=== PATIENT | female | born 1960 | race Caucasian/White ===

== ENCOUNTER → 2017-05-19 10:18 | Outpatient (CLI) | payer OTHER, SELFPAY ==
[2017-05-19 12:27] LABS: Anion Gap 9 (5-15); BUN 13 mg/dL (7-18); BUN/Creat Ratio 14.1 RATIO (10-20); Chloride 100 mmol/L (98-107); Creatinine, Serum 0.92 mg/dL (0.55-1.02); EST Glomerular Filtration Rate 67 mL/min (>60); Est Glom Filt Rate - Afr Amer 81 mL/min (>60); Glucose 91 mg/dL (70-110); Potassium 3.5 mmol/L (3.5-5.1); Sodium Level 140 mmol/L (136-145)
== END ==
PROVIDERS: Family Provider Family Medicine; PCP Family Medicine; Visit Provider Family Medicine
DX: I10 Essential (primary) hypertension (principal)
CPT/HCPCS: 36415; 80048

== ENCOUNTER → 2017-11-03 14:15 | Outpatient (CLI) | payer OTHER, SELFPAY ==
[2017-11-03 15:49] LABS: Anion Gap 7 (5-15); BUN 11 mg/dL (7-18); BUN/Creat Ratio 11.1 RATIO (10-20); Calcium,Total 9.2 mg/dL (8.5-10.1); Chloride 101 mmol/L (98-107); Creatinine, Serum 0.99 mg/dL (0.55-1.02); EST Glomerular Filtration Rate 62 mL/min (>60); Est Glom Filt Rate - Afr Amer 74 mL/min (>60); Glucose 89 mg/dL (74-106); Potassium 3.6 mmol/L (3.5-5.1); Sodium Level 142 mmol/L (136-145)
== END ==
PROVIDERS: Family Provider Family Medicine; PCP Family Medicine; Visit Provider Family Medicine
DX: I10 Essential (primary) hypertension (principal)
CPT/HCPCS: 36415; 80048

== ENCOUNTER → 2017-12-26 07:03 | Outpatient (CLI) | payer OTHER, SELFPAY | PROVIDERS: Family Provider Family Medicine; PCP Family Medicine; Visit Provider Family Medicine | DX: Z12.31 Encounter for screening mammogram for malignant neoplasm of breast (principal) | CPT/HCPCS: 77063; 77067 ==

== ENCOUNTER → 2018-06-05 11:21 | Outpatient (CLI) | payer OTHER, SELFPAY ==
[2018-06-05 13:30] LABS: Anion Gap 9 (5-15); BUN 15 mg/dL (7-18); BUN/Creat Ratio 17.1 RATIO (10-20); Calcium,Total 8.9 mg/dL (8.5-10.1); Chloride 100 mmol/L (98-107); Creatinine, Serum 0.88 mg/dL (0.55-1.02); EST Glomerular Filtration Rate 71 mL/min (>60); Est Glom Filt Rate - Afr Amer 86 mL/min (>60); Glucose 78 mg/dL (74-106); Potassium 3.5 mmol/L (3.5-5.1); Sodium Level 139 mmol/L (136-145)
== END ==
PROVIDERS: Family Provider Family Medicine; PCP Family Medicine; Visit Provider Family Medicine
DX: I10 Essential (primary) hypertension (principal)
CPT/HCPCS: 36415; 80048

== ENCOUNTER → 2018-12-14 | Outpatient (CLI) | payer OTHER, SELFPAY ==
[2018-12-14 12:56] LABS: Anion Gap 5 (5-15); BUN 10 mg/dL (7-18); BUN/Creat Ratio 10.8 RATIO (10-20); Calcium,Total 9.5 mg/dL (8.5-10.1); Chloride 103 mmol/L (98-107); Creatinine, Serum 0.92 mg/dL (0.55-1.02); EST Glomerular Filtration Rate 66 mL/min (>60); Est Glom Filt Rate - Afr Amer 80 mL/min (>60); Glucose 70 mg/dL (74-106); Sodium Level 142 mmol/L (136-145)
== END | disposition home or self-care (01) ==
LOC: MFPLAB 10:29
PROVIDERS: Family Provider Family Medicine; PCP Family Medicine; Visit Provider Family Medicine
DX: I10 Essential (primary) hypertension (principal)
CPT/HCPCS: 36415; 80048

== ENCOUNTER → 2019-01-08 08:25 | Outpatient (CLI) | payer OTHER, SELFPAY ==
--- NOTE | 2019-01-08 08:32 | BI_ITS ---
MAMMOGRAPHY - BILATERAL SCREENING REASON FOR EXAM: Female, 58 years old. Routine annual screening examination. PERTINENT HISTORY: Aunt with breast cancer. Remote left aspiration biopsy. TECHNIQUE: Digital bilateral breast neal (3D mammographic acquisition) in the CC and MLO projections. 2-D mediolateral oblique (MLO) and craniocaudad (CC) views of both breasts were obtained. CAD: Full Field Digital Mammography with Computer Added Detection was performed. COMPARISON: Comparison is made with prior study dated December 26, 2017 and November 25, 2016. FINDINGS: Breast Composition: The breasts are extremely dense, which lowers the sensitivity of mammography. There are no dominant masses or suspicious calcifications. No other significant abnormalities are identified. There has been no significant change since the prior study. BI/SCREEN MAMM (CAD) W/NEAL BILAT IMPRESSION: Stable bilateral screening mammogram. Yearly follow-up mammogram recommended. (A) ASSESSMENT CATEGORY: BIRADS Category 1: Negative. A letter regarding these results will be sent to the patient by the facility within 30 days. Approximately 10% of breast cancers are not detected by mammography. A normal mammogram should not delay biopsy of a clinically suspicious abnormality. [id number] Electronically Signed: Tito Scott, at 11:26 EDT , Service support ,
== END ==
PROVIDERS: Family Provider Family Medicine; PCP Family Medicine; Referring Provider Family Medicine; Visit Provider Family Medicine
DX: Z12.31 Encounter for screening mammogram for malignant neoplasm of breast (principal)
CPT/HCPCS: 77063; 77067

== ENCOUNTER → 2019-04-19 16:33 | Outpatient (CLI) | payer OTHER, SELFPAY ==
--- NOTE | 2019-04-19 16:35 | CT_ITS ---
STUDY: CT TEMPORAL BONES WITHOUT CONTRAST - ATTN: I.A.C. S REASON FOR EXAM: Female, 58 years old. RT CHRONIC MASTOIDITIS, RT HEARING LOSS, PREV SURG TO REPAIR A RUPTURED EAR DRUM AND MASTOIDS ON RT SIDE ALSO RADIATION DOSAGE (If Supplied By Facility): CTDIvol = ( 67.58 ) mGy, DLP = ( 797.88 ) mGycm TECHNIQUE: The patient was scanned in a multi detector CT scanner. Transaxial imaging was performed without the administration of intravenous contrast material. Sagittal and coronal images were reconstructed. Individualized dose optimization techniques were used for this CT. COMPARISON: None. FINDINGS: RIGHT TEMPORAL BONE Normal right internal auditory canal. Normal visualized ossicles and tympanic cavity. Normal right cochlea and semicircular canals. Normal vestibular aqueduct. Normal right petrous carotid artery. Normal right jugular fossa. Widely patent right canal wall up mastoidectomy defect without visible granulation tissue. Normal right petrous apex. LEFT TEMPORAL BONE Normal left internal auditory canal. Normal visualized ossicles and tympanic cavity. Normal left cochlea and semicircular canals. Normal vestibular aqueduct. Normal left petrous carotid artery. Normal right jugular fossa. Normal left mastoid air cells. Normal left petrous apex. CT/Orb Sella Post Fossa Ear w/o IMPRESSION: 1. Normal right canal wall up mastoidectomy defect. 2. Normal CT of the right external ear, right middle ear space, right middle ear ossicles, right osseous labyrinth and right IAC. 3. Normal CT of the left temporal bone. 4. No CT evidence of mastoiditis. Electronically Signed: Sky Mireles MD at 9:40 EST , Service support ,
== END ==
PROVIDERS: Family Provider Family Medicine; PCP Family Medicine; Referring Provider Otolaryngology; Visit Provider Otolaryngology
DX: H70.11 Chronic mastoiditis, right ear (principal)
CPT/HCPCS: 70480

== ENCOUNTER → 2019-07-02 10:20 | Outpatient (CLI) | payer OTHER, SELFPAY ==
[2019-07-02 12:49] LABS: Anion Gap 6 (5-15); BUN 12 mg/dL (7-18); BUN/Creat Ratio 12.6 RATIO (10-20); Calcium,Total 9.6 mg/dL (8.5-10.1); Chloride 104 mmol/L (98-107); Creatinine, Serum 0.95 mg/dL (0.55-1.02); EST Glomerular Filtration Rate 64 mL/min (>60); Est Glom Filt Rate - Afr Amer 78 mL/min (>60); Glucose 81 mg/dL (74-106); Potassium 3.6 mmol/L (3.5-5.1); Sodium Level 141 mmol/L (136-145)
== END ==
PROVIDERS: PCP Family Medicine; Visit Provider Family Medicine
DX: I10 Essential (primary) hypertension (principal)
CPT/HCPCS: 36415; 80048

== ENCOUNTER 2019-08-30 16:00 | Outpatient (RCR) | payer OTHER, SELFPAY ==
--- NOTE | 2019-08-23 12:47 | HP.PTEVAL_ITS ---
Patient's Visit Information JAYLYN YO is a 58 year old F referred to Physical Therapy by Dr. Steph Pereira MD with a diagnosis of L shoulder strain. Date of Evaluation: 08/23/19 Physical Therapist: Jone Bell, PT, ATC - Visit Plan Frequency: 1x/Week Duration: 1 Week Plan: Issue and instruct pt on HEP of rotator cuff strengthening and scap stab ex's - Subjective Pt reports she has had L shoulder pain for a long time, but notes this episode has been around for 4 weeks. Pt reports she is R hand dominant. Pt notes her pain had an insidious onset in nature. Pt reports she does have a one year old grandchild and notes maybe holding her is what has caused her pain. Pt reports most of her pain is on the posterior aspect of L shoulder. Pt notes any overhead lifting, driving, and donning her coat results in increased pain. Pt reports occasional sleep difficulty secondary to pain. No L UE tingling or numbness at this time, but pt notes L hand falls asleep sometines secondary to capal tunnel. 3/10 pain at rest, 8/10 at worst (house chores) - Pain L shoulder Pain Intensity (Out of 10): 3 Pain Intensity Range: 8 - Objective Neuro: B UE sensation is WNL to light touch. B bicepital reflex 2/3. Palpation: Pt is very sore on the LHB tendon and throughout the distribution of the supraspinatus. ROM: L shoulder flex= 170, abd= 180, ER= 50, IR WNL , R shoulder flex= 170, abd= 150, ER= 50, IR WNL. MMT: L shoulder IR and ER 4/5 and painful. All other B UE 5/5 throughout. Special test: Pos empty can and HK - Goals Goal 1:: I with HEP Goal Time Frame: 1 Week - Rehabilitation Potential Physical Therapy Diagnosis: L shoulder pain, weakness, and limitations with IADL's secondary to L shoulder rotator cuff syndrome Rehabilitation Potential: Good - Anticipated Interventions Patient/Client Instruction: Educate patient on: Condition, Plan of Care For the Purpose of:: To improve self management Therapeutic Exercise to Include: Strength training, Endurance training, Scapular Strength/Stabilization For the Purpose of:: To decrease pain, To improve muscle performance and motor function Cryotherapy (ice pack, ice massage): Yes For the Purpose of:: To decrease pain Thank you for the opportunity to evaluate your patient. For Medicare and Medicare HMO plans, please review the plan of care and approve it. It will need to be FAXED BACK to us at [phone] for Medicare purposes. For Medicare only, by signing this I certify the plan of care. Please let me know if there are questions or concerns regarding this plan of care. Physician Signature: _Date:
--- NOTE | 2019-10-05 08:30 | HP.PT.NRP ---
JAYLYN YO was seen in my office for initial evaluation on 08/23/19. The following Plan of Care was established for this patient: Initial Frequency: 1x/Week Initial Duration: 1 Week Patient/Client Instruction: Educate patient on: Condition, Plan of Care For the Purpose of:: To improve self management Therapeutic Exercise to Include: Strength training, Endurance training, Scapular Strength/Stabilization For the Purpose of:: To decrease pain, To improve muscle performance and motor function Cryotherapy (ice pack, ice massage): Yes For the Purpose of:: To decrease pain This patient was last seen in our office . Pertinent comments regarding their Physical therapy will appear below: Pt phoned the clinic yesterday to report she is doing well and wants to cancel her last appointment. Pt is discharged. At this point I will be discontinuing this patient from physical therapy. I would be happy to see this patient again in the future if found appropriate by the physician. Thank you! Jone Bell, PT, ATC
== END 2019-08-30 19:00 | disposition home or self-care (01) ==
LOC: PT 16:00
PROVIDERS: PCP Family Medicine; Referring Provider Family Medicine; Visit Provider Family Medicine
DX: S46.912D Strain of unspecified muscle, fascia and tendon at shoulder and upper arm level, left arm, subsequent encounter (principal)
CPT/HCPCS: 97110; 97161

== ENCOUNTER → 2020-02-07 11:37 | Outpatient (CLI) | payer OTHER, SELFPAY ==
[2020-02-07 15:47] LABS: Anion Gap 5 (5-15); BUN 17 mg/dL (7-18); BUN/Creat Ratio 20.2 RATIO (10-20); Calcium,Total 8.7 mg/dL (8.5-10.1); Chloride 102 mmol/L (98-107); Cholesterol 242 mg/dL (200); Creatinine, Serum 0.84 mg/dL (0.55-1.02); EST Glomerular Filtration Rate 73 mL/min (>60); Est Glom Filt Rate - Afr Amer 89 mL/min (>60); Glucose 94 mg/dL (74-106); High Density Lipoprotein 90 mg/dL; Potassium 3.7 mmol/L (3.5-5.1); Sodium Level 139 mmol/L (136-145); Triglycerides 76 mg/dL; Very Low Density Lipoprotein 15 mg/dL (5-40)
== END ==
PROVIDERS: PCP Family Medicine; Visit Provider Family Medicine
DX: I10 Essential (primary) hypertension (principal)
CPT/HCPCS: 36415; 80048; 80061

== ENCOUNTER → 2020-03-02 15:24 | Outpatient (CLI) | payer OTHER, SELFPAY ==
--- NOTE | 2020-03-02 15:25 | BI_ITS ---
MAMMOGRAPHY - BILATERAL SCREENING REASON FOR EXAM: Female, 59 years old. Routine annual screening examination. PERTINENT HISTORY: Aunt with breast cancer. TECHNIQUE: Digital bilateral breast neal (3D mammographic acquisition) in the CC and MLO projections. 2-D mediolateral oblique (MLO) and craniocaudad (CC) views of both breasts were obtained. CAD: Full Field Digital Mammography with Computer Added Detection was performed. COMPARISON: Comparison is made with prior study dated 01/08/2019 and 12/26/2017. FINDINGS: Breast Composition: The breasts are extremely dense, which lowers the sensitivity of mammography. There are no dominant masses or suspicious calcifications. No other significant abnormalities are identified. There has been no significant change since the prior study. BI/SCREEN MAMM (CAD) W/NEAL BILAT IMPRESSION: Stable bilateral screening mammogram. Yearly follow-up mammogram recommended. (A) ASSESSMENT CATEGORY: BIRADS Category 1: Negative. A letter regarding these results will be sent to the patient by the facility within 30 days. Approximately 10% of breast cancers are not detected by mammography. A normal mammogram should not delay biopsy of a clinically suspicious abnormality. [id number] Electronically Signed: Tito Scott, at 8:03 EST , Service support ,
--- NOTE | 2020-03-02 15:30 | BD_ITS ---
STUDY: DUAL ENERGY X-RAY ABSORPTIOMETRY / DXA REASON FOR EXAM: Female, 59 years old. Age of [place] 52. Pat is 131.2# and 66.25 and quot;. Takes a multi-vit. Exercises a lot. TECHNIQUE: Bone Mineral Density (BMD) measurements of lumbar spine and bilateral hips were obtained. COMPARISON: Comparison is made with prior study dated 10/04/2015. FINDINGS: Lumbar Spine (L1-L4): g/cm2 (0.997) / T-score (-1.4) / Z-score (-0.3) Findings are suggestive of osteopenia with a low fracture risk. Left Femur Total: g/cm2 (0.766) / T-score (-1.9) / Z-score (-1.1) Left Femoral Neck: g/cm2 (0.793) / T-score (-1.8) / Z-score (-0.6) Right Femur Total: g/cm2 (0.707) / T-score (-2.4) / Z-score (-1.5) Right Femoral Neck: g/cm2 (0.712) / T-score (-2.3) / Z-score (-1.2) The T-Scores on the most recent prior examination were: Lumbar Spine (L1-L4): There has been worsening of bone density since the previous examination. Left Femur Total: which represents a worsening of 3.6%. Right Femur Total: which represents a worsening of 4.1%. BD/Dexa Bone Density Study IMPRESSION: The patient is considered osteopenic as outlined below according to World Eb Organization (WHO) criteria with a high fracture risk. There has been worsening of bone density since the previous examination. Reference Information: The T-score is the number of standard deviations above or below the standard which is normal for young adults at their peak bone mineral density. The World Health Organization (WHO) interprets the T-scores as follows: Above -1 Normal bone density Between -1 and -2.5 Osteopenia Equal to / or below -2.5 Osteoporosis As a practical clinical guideline, osteopenia may be graded as follows: Mild -1 through -1.5 Moderate -1.6 through -2.0 Severe -2.1 through -2.4 The Z-score is the number of standard deviations above or below age-matched controls. A Z-score of less than -1.5 would be considered abnormal. References: 1. NIH Osteoporosis and Related Bone Diseases www osteo.org 2. International Society for Clinical Densitometry www iscd.org 3. National Osteoporosis Foundation www nof.org Electronically Signed: Tito Scott, at 9:05 EST , Service support ,
== END ==
PROVIDERS: PCP Family Medicine; Referring Provider Family Medicine; Visit Provider Family Medicine
DX: Z00.00 Encounter for general adult medical examination without abnormal findings (principal); Z12.31 Encounter for screening mammogram for malignant neoplasm of breast; N95.9 Unspecified menopausal and perimenopausal disorder
CPT/HCPCS: 77063; 77067; 77080

== ENCOUNTER → 2020-08-07 10:28 | Outpatient (CLI) | payer OTHER, SELFPAY ==
[2020-08-07 12:54] LABS: Anion Gap 5 (5-15); BUN 14 mg/dL (7-18); BUN/Creat Ratio 14.9 RATIO (10-20); Calcium,Total 9.2 mg/dL (8.5-10.1); Chloride 102 mmol/L (98-107); Creatinine, Serum 0.94 mg/dL (0.55-1.02); EST Glomerular Filtration Rate 65 mL/min (>60); Est Glom Filt Rate - Afr Amer 78 mL/min (>60); Glucose 103 mg/dL (74-106); Potassium 3.6 mmol/L (3.5-5.1); Sodium Level 140 mmol/L (136-145)
== END ==
PROVIDERS: PCP Family Medicine; Visit Provider Family Medicine
DX: I10 Essential (primary) hypertension (principal)
CPT/HCPCS: 36415; 80048

== ENCOUNTER → 2020-10-02 10:48 | Outpatient (CLI) | payer OTHER, SELFPAY ==
[2020-10-02 12:20] LABS: Absolute Lymphocyte Count 1.11 X10^3/uL (0.83-4.51); Basophil# 0.04 X10^3/uL; Basophil% 0.9 % (0-1); Eosinophil# 0.09 X10^3/uL; Eosinophils% 1.9 % (0-5); Hemoglobin 14.6 g/dL (12.0-15.0); Lymphocyte # 1.11 X10^3/ul (0.83-4.51); Lymphocyte % 23.7 % (19-41); Mean Corp Hgb Conc 33.2 g/dL (32-36); Mean Corpuscular Hgb 28.8 pg (27.0-32.0); Mean Corpuscular Volume 86.8 fL (81-99); Mean Platelet Vol. 10.2 fl (6.2-12.0); Monocyte# 0.35 X10^3/uL; Monocyte% 7.5 % (0-10); NRBC Flagged by Analyzer 0 % (0-5); Neutrophil # 3.04 X10^3/uL (2.7-7.7); Neutrophil % 64.9 % (47-70); Platelet Count 259 K/mm3 (150-450); RBC Distribution Width SD 40.5 fl (35.1-43.9); Red Blood Count 5.07 M/mm3 (4.2-5.4); White Blood Count 4.7 K/mm3 (4.4-11.0)
[2020-10-02 12:46] LABS: ALB/GLOB Ratio 1.3 RATIO (0.9-2.4); AST(SGOT) 15 U/L (15-37); Alanine Aminotransfer ALT/SGPT 20 U/L (13-56); Albumin, Serum 4.2 g/dL (3.2-5.0); Alkaline Phosphatase 92 U/L (45-117); Anion Gap 8 (5-15); BUN 13 mg/dL (7-18); BUN/Creat Ratio 13.9 RATIO (10-20); Calcium,Total 9.2 mg/dL (8.5-10.1); Chloride 102 mmol/L (98-107); Creatinine, Serum 0.94 mg/dL (0.55-1.02); EST Glomerular Filtration Rate 65 mL/min (>60); Est Glom Filt Rate - Afr Amer 79 mL/min (>60); Globulin 3.3 g/dL (2.2-4.2); Glucose 94 mg/dL (74-106); Potassium 3.6 mmol/L (3.5-5.1); Protein, Total 7.5 g/dL (6.4-8.2); Sodium Level 141 mmol/L (136-145)
[2020-10-05 06:07] LABS: QNTFERON TB Mitogen Value > 10.00 IU/mL (.); QNTFERON TB Nil Value 0 IU/mL (.); QNTFERON TB1+ Ag Value 0 IU/mL (.); QNTFERON TB2+ Ag Value 0 IU/mL (.)
[2020-10-05 13:55] LABS: QNTIFERON TB Positive Criteria Negative (Negative); Thyroid Peroxidase AB 77 IU/mL (0-34)
== END ==
PROVIDERS: PCP Family Medicine; Referring Provider Dermatology Pediatric Dermatology; Visit Provider Dermatology Pediatric Dermatology
DX: L40.0 Psoriasis vulgaris (principal); L40.8 Other psoriasis; L80 Vitiligo; Z79.899 Other long term (current) drug therapy
CPT/HCPCS: 36415; 80053; 85025; 86376; 86480

== ENCOUNTER 2021-05-17 11:39 | Outpatient (CLI) | payer OTHER, SELFPAY ==
--- NOTE | 2021-05-17 11:42 | RAD_ITS ---
STUDY: X-RAY - UNILATERAL RIBS ( RIGHT ) WITH CHEST REASON FOR EXAM: Female, 60 years old. PAIN TECHNIQUE - RIBS: 4 view(s) of the ribs. TECHNIQUE - CHEST: Single PA view of the chest. COMPARISON: None. FINDINGS - RIBS: There is very subtle contour abnormality in the posterior-lateral right ninth rib which may represent a fracture. No acute displaced fracture, pleural thickening or pneumothorax FINDINGS - CHEST: Lungs are mildly hyperexpanded without a superimposed acute pulmonary process. Normal size heart. Normal mediastinum and alfonso. Normal visualized pulmonary arteries. Normal visualized aortic arch and descending thoracic aorta. There are diffuse degenerative changes of the visualized thoracic spine. Normal visualized ribs, clavicles, and shoulders. There is no demonstrated abnormality of the visualized soft tissue structures of the upper abdomen. RAD/Ribs Uni Min 3V w/PA Chest IMPRESSION: RIBS: Possible nondisplaced right lateral ninth rib fracture without pleural thickening or pneumothorax CHEST: Mildly hyperexpanded lungs without a superimposed acute pulmonary process Electronically Signed: Daniel Monet MD at 12:52 EST ,
== END 2021-05-17 23:59 | disposition short-term general hospital (02) ==
PROVIDERS: PCP Family Medicine; Referring Provider Family Medicine; Visit Provider Family Medicine
DX: R07.81 Pleurodynia (principal)
CPT/HCPCS: 71101

== ENCOUNTER → 2022-01-07 | Outpatient (CLI) | payer OTHER, SELFPAY ==
[2022-01-07 13:20] LABS: Anion Gap 10 (5-15); BUN 17 mg/dL (7-18); Calcium,Total 9.3 mg/dL (8.5-10.1); Chloride 103 mmol/L (98-107); Cholesterol 253 mg/dL (200); Creatinine, Serum 0.89 mg/dL (0.55-1.02); EST Glomerular Filtration Rate 68 mL/min (>60); Est Glom Filt Rate - Afr Amer 83 mL/min (>60); Glucose 89 mg/dL (74-106); High Density Lipoprotein 87 mg/dL; Potassium 3.5 mmol/L (3.5-5.1); Sodium Level 142 mmol/L (136-145); Triglycerides 60 mg/dL; Very Low Density Lipoprotein 12 mg/dL (5-40)
== END | disposition home or self-care (01) ==
LOC: MFPLAB 10:10
PROVIDERS: PCP Family Medicine; Visit Provider Family Medicine
DX: I10 Essential (primary) hypertension (principal)
CPT/HCPCS: 36415; 80048; 80061

== ENCOUNTER 2022-03-18 09:05 | Outpatient (CLI) | payer OTHER, SELFPAY ==
[2022-03-18 12:59] LABS: AST(SGOT) 18 U/L (15-37); Alanine Aminotransfer ALT/SGPT 21 U/L (13-56); Cholesterol 188 mg/dL (200); High Density Lipoprotein 87 mg/dL; Triglycerides 68 mg/dL; Very Low Density Lipoprotein 14 mg/dL (5-40)
== END 2022-03-18 23:59 | disposition home or self-care (01) ==
LOC: MFPLAB 09:05
PROVIDERS: PCP Family Medicine; Visit Provider Family Medicine
DX: E78.5 Hyperlipidemia, unspecified (principal)
CPT/HCPCS: 36415; 80061; 84450; 84460

== ENCOUNTER → 2022-05-16 | Outpatient (CLI) | payer OTHER, SELFPAY ==
--- NOTE | 2022-05-16 12:56 | BI_ITS ---
MAMMOGRAPHY - BILATERAL SCREENING REASON FOR EXAM: Female, 61 years old. Routine annual screening examination. PERTINENT HISTORY: Aunt with breast cancer. TECHNIQUE: Digital bilateral breast neal (3D mammographic acquisition) in the CC and MLO projections. 2-D mediolateral oblique (MLO) and craniocaudad (CC) views of both breasts were obtained. CAD: Full Field Digital Mammography with Computer Added Detection was performed. COMPARISON: Comparison is made with prior study dated 03/02/2020 and 01/08/2019. FINDINGS: Breast Composition: The breasts are extremely dense, which lowers the sensitivity of mammography. There are no dominant masses or suspicious calcifications. No other significant abnormalities are identified. There has been no significant change since the prior study. BI/SCRN MAMM (CAD)W/NEAL BILAT IMPRESSION: Stable bilateral screening mammogram. Yearly follow-up mammogram recommended. (A) ASSESSMENT CATEGORY: BIRADS Category 1: Negative. A letter regarding these results will be sent to the patient by the facility within 30 days. Approximately 10% of breast cancers are not detected by mammography. A normal mammogram should not delay biopsy of a clinically suspicious abnormality. [id number] Electronically Signed: Tito Scott MD at 14:02 EST ,
--- NOTE | 2022-05-16 13:02 | BD_ITS ---
STUDY: DUAL ENERGY X-RAY ABSORPTIOMETRY / DXA REASON FOR EXAM: Female, 61 years old. [id number] TECHNIQUE: Bone Mineral Density (BMD) measurements of lumbar spine and bilateral hips were obtained. COMPARISON: Comparison is made with prior study dated 03/02/2020. FINDINGS: Lumbar Spine (L1-L4): g/cm2 (0.818) / T-score (-2.0) / Z-score (-0.5) Findings are suggestive of osteopenia with a moderate fracture risk. Left Femur Total: g/cm2 (0.684) / T-score (-2.1) / Z-score (-1.1) Left Femoral Neck: g/cm2 (0.610) / T-score (-2.2) / Z-score (-0.8) Right Femur Total: g/cm2 (0.656) / T-score (-2.3) / Z-score (-1.3) Right Femoral Neck: g/cm2 (0.564) / T-score (-2.6) / Z-score (-1.2) The T-Scores on the most recent prior examination were: Lumbar Spine (L1-L4): There has been worsening of bone density since the previous examination. Left Femur Total: which represents a worsening of 3.1%. Right Femur Total: which represents an improvement of 1%. BD/Dexa Bone Density Study IMPRESSION: The patient is considered osteoporotic as outlined below according to World Eb Organization (WHO) criteria with a high fracture risk. There has been worsening of bone density since the previous examination. Reference Information: The T-score is the number of standard deviations above or below the standard which is normal for young adults at their peak bone mineral density. The World Health Organization (WHO) interprets the T-scores as follows: Above -1 Normal bone density Between -1 and -2.5 Osteopenia Equal to / or below -2.5 Osteoporosis As a practical clinical guideline, osteopenia may be graded as follows: Mild -1 through -1.5 Moderate -1.6 through -2.0 Severe -2.1 through -2.4 The Z-score is the number of standard deviations above or below age-matched controls. A Z-score of less than -1.5 would be considered abnormal. References: 1. NIH Osteoporosis and Related Bone Diseases www osteo.org 2. International Society for Clinical Densitometry www iscd.org 3. National Osteoporosis Foundation www nof.org Electronically Signed: Tito Scott MD at 9:32 EST ,
== END | disposition home or self-care (01) ==
PROVIDERS: PCP Family Medicine; Visit Provider Family Medicine
DX: Z00.00 Encounter for general adult medical examination without abnormal findings (principal); Z12.31 Encounter for screening mammogram for malignant neoplasm of breast; M81.0 Age-related osteoporosis without current pathological fracture; M85.80 Other specified disorders of bone density and structure, unspecified site; Z80.3 Family history of malignant neoplasm of breast; N95.9 Unspecified menopausal and perimenopausal disorder
CPT/HCPCS: 77063; 77067; 77080

== ENCOUNTER → 2023-02-21 | Outpatient (CLI) | payer OTHER, SELFPAY ==
[2023-02-21 14:10] LABS: AST(SGOT) 18 U/L (15-37); Alanine Aminotransfer ALT/SGPT 24 U/L (13-56); Anion Gap 3 (5-15); BUN 22 mg/dL (7-18); BUN/Creat Ratio 25.1 RATIO (10-20); Chloride 102 mmol/L (98-107); Cholesterol 248 mg/dL (200); Creatinine, Serum 0.88 mg/dL (0.55-1.02); EST Glomerular Filtration Rate 69 mL/min (>60); Est Glom Filt Rate - Afr Amer 84 mL/min (>60); Glucose 90 mg/dL (74-106); High Density Lipoprotein 83 mg/dL; Potassium 3.7 mmol/L (3.5-5.1); Sodium Level 137 mmol/L (136-145); Triglycerides 51 mg/dL; Very Low Density Lipoprotein 10 mg/dL (5-40)
== END | disposition home or self-care (01) ==
LOC: MFPLAB 10:24
PROVIDERS: PCP Family Medicine; Visit Provider Family Medicine
DX: I10 Essential (primary) hypertension (principal); E78.5 Hyperlipidemia, unspecified
CPT/HCPCS: 36415; 80048; 80061; 84450; 84460

== ENCOUNTER → 2023-05-15 | Outpatient (CLI) | payer OTHER, SELFPAY ==
[2023-05-15 13:08] LABS: AST(SGOT) 24 U/L (15-37); Alanine Aminotransfer ALT/SGPT 28 U/L (13-56); Anion Gap 4 (5-15); BUN 19 mg/dL (7-18); BUN/Creat Ratio 19.8 RATIO (10-20); Calcium,Total 9.4 mg/dL (8.5-10.1); Chloride 103 mmol/L (98-107); Cholesterol 205 mg/dL (200); Creatinine, Serum 0.96 mg/dL (0.55-1.02); EST Glomerular Filtration Rate 63 mL/min (>60); Est Glom Filt Rate - Afr Amer 76 mL/min (>60); Glucose 71 mg/dL (74-106); High Density Lipoprotein 92 mg/dL; Potassium 3.4 mmol/L (3.5-5.1); Sodium Level 139 mmol/L (136-145); Triglycerides 68 mg/dL; Very Low Density Lipoprotein 14 mg/dL (5-40)
[2023-05-15 13:15] LABS: Microalbumin,Random Urine 9.8 mg/L (NO RANGE EST.)
== END | disposition home or self-care (01) ==
LOC: MFPLAB 09:56
PROVIDERS: PCP Family Medicine; Visit Provider Family Medicine
DX: I10 Essential (primary) hypertension (principal); E78.5 Hyperlipidemia, unspecified
CPT/HCPCS: 36415; 80048; 80061; 82043; 82570; 84450; 84460

== ENCOUNTER → 2023-05-29 | Outpatient (CLI) | payer OTHER, SELFPAY ==
--- NOTE | 2023-05-29 09:51 | BI_ITS ---
MAMMOGRAPHY - BILATERAL SCREENING REASON FOR EXAM: Female, 62 years old. Routine annual screening examination. PERTINENT HISTORY: History of remote left breast aspiration. Aunt with breast cancer. TECHNIQUE: Digital bilateral breast neal (3D mammographic acquisition) in the CC and MLO projections. 2-D mediolateral oblique (MLO) and craniocaudad (CC) views of both breasts were obtained. CAD: Full Field Digital Mammography with Computer Added Detection was performed. COMPARISON: Comparison is made with prior study dated November 13, 2022 and March 02, 2020. FINDINGS: Breast Composition: The breasts are extremely dense, which lowers the sensitivity of mammography. There are no dominant masses or suspicious calcifications. No other significant abnormalities are identified. There has been no significant change since the prior study. BI/SCRN MAMM (CAD)W/NEAL BILAT IMPRESSION: Stable bilateral screening mammogram. Yearly follow-up mammogram recommended. (A) ASSESSMENT CATEGORY: BIRADS Category 1: Negative. A letter regarding these results will be sent to the patient by the facility within 30 days. Approximately 10% of breast cancers are not detected by mammography. A normal mammogram should not delay biopsy of a clinically suspicious abnormality. [id number] Electronically Signed: Tito Scott MD at 10:41 EST ,
== END | disposition home or self-care (01) ==
PROVIDERS: PCP Family Medicine; Referring Provider Family Medicine; Visit Provider Family Medicine
DX: Z12.31 Encounter for screening mammogram for malignant neoplasm of breast (principal); Z80.3 Family history of malignant neoplasm of breast
CPT/HCPCS: 77063; 77067

== ENCOUNTER 2024-05-27 09:30 | Outpatient (RCR) | payer OTHER, SELFPAY | END 2024-06-18 23:59 | LOC: NS 09:30 | PROVIDERS: PCP Family Medicine; Referring Provider Family Medicine; Visit Provider Family Medicine | DX: Z71.3 Dietary counseling and surveillance (principal); R63.5 Abnormal weight gain; I10 Essential (primary) hypertension; E78.5 Hyperlipidemia, unspecified | CPT/HCPCS: 97802 ==

== ENCOUNTER 2024-07-07 10:00 | Outpatient (RCR) | payer OTHER, SELFPAY | END 2024-07-19 23:59 | LOC: NS 10:00 | PROVIDERS: PCP Family Medicine; Referring Provider Family Medicine; Visit Provider Family Medicine | DX: Z71.3 Dietary counseling and surveillance (principal); E78.5 Hyperlipidemia, unspecified; R63.5 Abnormal weight gain; I10 Essential (primary) hypertension | CPT/HCPCS: 97803 ==

== ENCOUNTER → 2024-07-16 | Outpatient (CLI) | payer OTHER, SELFPAY ==
--- NOTE | 2024-07-16 14:25 | RAD_ITS ---
PROCEDURE: KNEE 4 OR MORE VIEWS 07/16/2024 REASON FOR EXAM: Pain Right knee) M 25.569). TECHNIQUE: 4 view(s) of the right knee COMPARISON: None. FINDINGS: Bones: No fracture. No dislocation. No significant cartilage loss or periarticular osteophytosis Joints: Unremarkable Effusion: Joint effusion suprapatellar bursa Soft tissues: Unremarkable Other: RAD/Knee 4 or More Views IMPRESSION: No acute process detected. Joint effusion. No significant degenerative change s appreciated. Reading [facility]
== END | disposition home or self-care (01) ==
LOC: MTRAD 14:18
PROVIDERS: PCP Family Medicine; Referring Provider Family Medicine; Visit Provider Family Medicine
DX: M25.569 Pain in unspecified knee (principal)
CPT/HCPCS: 73564

== ENCOUNTER → 2025-01-31 | Outpatient (CLI) | payer OTHER, SELFPAY | END | disposition home or self-care (01) | LOC: LABSPEC 10:56 | PROVIDERS: PCP Family Medicine; Visit Provider Obstetrics & Gynecology | DX: N89.8 Other specified noninflammatory disorders of vagina (principal) | CPT/HCPCS: 87070; 87205 ==

== ENCOUNTER → 2025-02-02 | Outpatient (CLI) | payer OTHER, SELFPAY ==
[2025-02-02 13:26] LABS: Cholesterol 275 mg/dL (<=200); Glucose 91 mg/dL (70-99); Low Density Lipoprotein Calc. 171 mg/dL; Triglycerides 65 mg/dL; Very Low Density Lipoprotein 13 mg/dL (5-40); Vitamin D,25 Hydroxy 43.3 ng/mL (30-100); cholesterol:hdl ratio screen 3.03
== END | disposition home or self-care (01) ==
PROVIDERS: Obstetrics & Gynecology; PCP Family Medicine; Visit Provider Obstetrics & Gynecology
DX: Z13.29 Encounter for screening for other suspected endocrine disorder (principal); M81.0 Age-related osteoporosis without current pathological fracture; Z13.220 Encounter for screening for lipoid disorders; Z13.1 Encounter for screening for diabetes mellitus
CPT/HCPCS: 36415; 80061; 82306; 82947; 84443

== ENCOUNTER → 2025-03-01 | Outpatient (CLI) | payer OTHER, SELFPAY ==
--- NOTE | 2025-03-01 10:03 | BD_ITS ---
PROCEDURE: DEXA BONE DENSITY STUDY 03/01/2025 REASON FOR EXAM: OSTEOPOROSIS F, age 64 y/o . Postmenopausal. TECHNIQUE: Procedure Code: BDDBD Modality: DX Procedure: DEXA BONE DENSITY STUDY COMPARISON: May 16, 2022. FINDINGS: BMD and T-SCORES Lumbar spine: 0.764 g/cm2, T-score -2.5 Levels: L1 through L4 Change from prior: Loss of 6.5%. Left femoral neck: 0.704 g/cm2, T-score -1.3 Femoral neck comparison data not recommended for monitoring change. Left total hip: 0.712 g/cm2, T-score -1.9 Change from prior: Improvement of 4.1%. Right femoral neck: 0.557 g/cm2, T-score -2.6 Femoral neck comparison data not recommended for monitoring change. Right total hip: 0.609 g/cm2, T-score -2.7 Change from prior: Loss of 7.1%. The World Health Organization has defined the following categories based on bone density: Normal bone density: T-score equal to or greater than -1.0 Osteopenia: T-score between -1.0 and -2.5 Osteoporosis: T-score equal to or less than -2.5 FRAX (or Comparable) Fracture Risk Assessment: 10 Year Probability of Fracture: Major Osteoporotic Fracture: 22% Hip Fracture: 2.8% (Note: FRAX is not to be reported in setting of normal range bone density, osteoporosis on DEXA, known history of osteoporosis, prior osteoporotic hip or vertebral fracture, or for any patient undergoing pharmacological treatment for bone loss.) The National Osteoporosis Foundation (NOF) recommends pharmacological treatment for patients with a FRAX 10-year risk of 3% or higher for a hip fracture, or 20% or higher for a major osteoporotic fracture, to prevent osteoporosis and reduce fracture risk. The patient does meet the pharmacological treatment recommendations for prevention of osteoporosis. BD/Dexa Bone Density Study IMPRESSION: OSTEOPOROSIS. Recommend follow-up as clinically warranted. Reading Location: [id number]
--- NOTE | 2025-03-01 10:30 | BI_ITS ---
EXAM: SCRN MAMM (CAD)W/NEAL BILAT DATE: 03/01/2025 CLINICAL HISTORY: F, Age 64 y/o , SCREENING MAMMOGRAM Aunt with breast cancer. History of remote left breast aspiration. TECHNIQUE: Procedure Code: [id number] Modality: MG Procedure: SCRN MAMM (CAD)W/NEAL BILAT COMPARISON: Prior exam(s) dated May 29, 2023.. FINDINGS: TISSUE DENSITY: The breasts are extremely dense, which lowers the sensitivity of mammography. Bilateral Breast Mammographic Findings: No significant masses, calcifications or other abnormalities are identified. No suspicious masses, areas of developing architectural distortion, or suspicious calcifications. There has been no significant interval change. BI/SCRN MAMM (CAD)W/NEAL BILAT IMPRESSION: Stable bilateral screening mammogram. OVERALL FINAL ASSESSMENT BI-RADS 1: NEGATIVE. RECOMMENDATION: Routine annual follow-up in 1 Year Additional Recommendation none A letter with findings and recommendations will be mailed to the patient. Reading Location: [facility]
--- OUTSIDE RECORDS SUMMARY | 2025-03-01 11:31 | XMS RPT_ITS | CCD ---
Author Organization [facility] Care Team Providers Care Grinding Mill Operator Name Role Phone [place], Steph Ball Primary Care Provider [phone] STEPH PEREIRA Primary Care Unavailable YULI YARBROUGH Referring Unavailable JOLLIFF, STEPH KEENAN Primary Care Unavailable YULI YARBROUGH Referring Unavailable YULI YARBROUGH Attending Unavailable YULI YARBROUGH Attending Unavailable JOLLIFF, STEPH KEENAN Primary Care Unavailable YULI YARBROUGH Referring Unavailable ARMANDO YI Attending Unavailable JOLLLILIAN, STEPH KEENAN Primary Care Unavailable YULI YARBROUGH Attending Unavailable JOLLIFF, STEPH KEENAN Primary Care Unavailable YARBROUGHYULI Attending Unavailable JOLLIFF, STEPH KEENAN Primary Care Unavailable Randall MO, Dr. Steph Mahajan Primary Care Provider Dr. Steph Pereira MD Attending Provider Dr. Steph Pereira MD Referring Provider Dr. Greg Sahu MD Attending Provider Dr. Greg Sahu MD Referring Provider Dr. Steph Pereira MD Primary Care Physician Dr. Steph Pereira MD Referring Provider Dr. Shara Celestin DO Attending Physician Dr. Ludivina Coats MD Attending Physician Steph Pereira Primary Care Unavailable Jolliff, Steph S Attending Unavailable Jolliff, Steph S Referring Unavailable Jolliff, Steph S Attending Unavailable Jolliff, Steph S Referring Unavailable Jolliff, Steph S Primary Care Unavailable Lawrence Moore Primary Care Unavailable Shara Celestin Attending Unavailmaxwell e Shara Celestin Referring Unavailabl e Jokariiff, Steph S Primary Care Unavailable Jolliff, Steph S Attending Unavailable Lynnlliff, Steph S Referring Unavailable Jolliff, Steph S Primary Care Unavailable Greg Sahu Attending Unavailable Greg Sahu Referring Unavailable Shara Celestin Attending Unavailabl e Dorianiff, Steph S Referring Unavailable Jolliff, Steph S Primary Care Unavailable Jolliff, Steph S Primary Care Unavailable Shara Celestin Attending Unavailabl e Dorianiff, Steph S Primary Care Unavailable Ludivina Coats Attending Unavailable Allergies Allergy Classification Reported Allergen(s) Allergy Type Date of Onset Reaction(s) Facility (9 sources) Adhesive agent; Translations: [ADHESIVE] Propensity to adverse reactions 3 [facility] (5 sources) certolizumab pegol; Translations: [CERTOLIZUMAB PEGOL] Drug Allergy 4 Unknown [facility] Medications Current Medications Medication Drug Class(es) Dates Sig (Normalized) Sig (Original) 8 hr acetaminophen 650 mg extended release oral tablet (2 sources) Start: 01-31-2025 take 1 tablet by mouth every eight hours Start: 11-09-2024 End: 01-31-2025 take 1 tablet by mouth every six hours as needed Acetaminophen 500 mg tablet Discontinued 500 mg PO EVERY 6 HOURS as needed November 09, 2024 12:00am January 31, 2025 10:02am alendronic acid 0.933 mg/ml oral solution (3 sources) Bisphosphonate take 75 mL by mouth in the morning alendronate (FOSAMAX) 70 mg/75 mL solution Take 75 mL (70 mg total) by mouth every 7 days Take in the morning with a full glass of water, on an empty stomach, and do not take anything else by mouth or lie down for the next 30 min. . 0 Active atorvastatin 10 mg oral tablet (3 sources) HMG-CoA Reductase Inhibitor take 1 tablet by mouth once daily atorvastatin (LIPITOR) 10 MG tablet Take 1 (one) tablet (10 mg total) by mouth daily . 0 Active calcium carbonate 1250 mg / cholecalciferol 200 unt oral tablet (3 sources) Vitamin D take 1 tablet by mouth twice daily at mealtime calcium-vitamin D (OS-KRISS +D) 500 mg-5 mcg (200 unit) per tablet Take 1 (one) tablet by mouth 2 (two) times a day with meals . 0 Active cetirizine hydrochloride 10 mg oral capsule (1 source) Histamine-1 Receptor Antagonist Start: 025 take 1 capsule by mouth once daily as needed cholecalciferol 0.05 mg oral capsule (1 source) Vitamin D Start: 025 take 1 capsule by mouth once daily Dietary Supplement (Scandishake) 510 GM Powder (3 sources) Start: 014 take 510 g by mouth once daily Dietary Supplement (Scandishake) 510 GM Powder Active 510 GM PO DAILY February 24, 2014 12:00am Start: 02-24-2014 take 510 g by mouth once daily Dietary Supplement (Scandishake) 510 GM Powder Active 510 GM PO DAILY February 24, 2014 1:00am estradiol 0.1 mg/ml vaginal cream (1 source) Estrogen Start: 01-31-2025 Flaxseed Oil-[place] 3,6,9 (6 sources) Start: 11-28-2014 Flaxseed Oil-O delia 3,6,9 Active 1 EACH PO DAILY November 27, 2014 11:00pm Start: 11-28-2014 Flaxseed Oil-O delia 3,6,9 Active 1 EACH PO DAILY November 28, 2014 12:00am hydroCHLOROthiazide 12.5 mg / lisinopril 10 mg oral tablet (3 sources) Thiazide Diuretic, Angiotensin Converting Enzyme Inhibitor take 10-12.5 mg by mouth once lisinopriL-hydrochlorothiazide (PRINZIDE,ZESTORETIC) 10-12.5 mg per tablet Take 1 (one) tablet by mouth daily . 0 Active lisinopril 10 mg oral tablet (11 sources) Angiotensin Converting Enzyme Inhibitor Star t: 10-20 2-20 25 take 1 tablet by mouth once daily Start: 02-24-2014 End: 11-09-2024 take 1 tablet by mouth once daily Multivitamin tablet (1 source) Start: 01-31-2025 Waco-3 Fatty Acids-Fish Oil ([place]aco 3 Fish Oil Softgel) [address] (3 sources) Start: 02-24-2014 take 1 capsule by mouth once daily [place]-3 Fatty Acids-Fish Oil ([place] 3 Fish Oil Softgel) 1 EACH Capsule. Active 1 EACH PO DAILY February 24, 2014 12:00am Start: 02-24-2014 take 1 capsule by [facility] once daily [place]-3 Fatty Acids-Fish Oil ([place] 3 Fish Oil Softgel) 1 EACH Capsule. Active 1 EACH PO DAILY February 24, 2014 1:00am Completed/Discontinued Medications Medication Drug Class(es) Dates Sig (Normalized) Sig (Original) acetaminophen 325 mg / HYDROcodone bitartrate 5 mg oral tablet (9 sources) Opioid Agonist Start: 11-30-2014 End: 11-09-2024 Hydrocodone-Acetami nophen 1 TABLET tablet Discontinued 1 - 2 {tbl} PO EVERY 6 HOURS NEEDED as needed for Pain 60 0 November 30, 2014 12:00am November 09, 2024 3:59pm Start: 11-30-2014 [facility] hours as needed Hydrocodone-Acetaminophen Active 1 - 2 TABLET PO EVERY 6 HOURS NEEDED 60 November 29, 2014 11:00pm Dietary Supplement (Scandishake) 510 GM powder (6 sources) Start: 02-24-2014 End: 11-09-2024 take 510 g by mouth once daily Dietary Supplement (Scandishake) 510 GM powder Discontinued 510 g PO DAILY February 24, 2014 1:00am November 09, 2024 3:59pm Start: 02-24-2014 take 510 g by mouth once daily Dietary Supplement (Scandishake) 510 GM powder Active 510 g PO DAILY February 24, 2014 1:00am Start: 02-24-2014 take 510 g by mouth once daily Dietary Supplement (Scandishake) 510 GM powder Active 510 GM PO DAILY February 24, 2014 12:00am Flaxseed Oil-[place] 3,6,9 1 EACH capsule (3 sources) Start: 11-28-2014 End: 11-09-2024 Flaxseed Oil-[place] 3,6,9 1 E ACH capsule Discontinued 1 NMA PO DAILY November 28, 2014 12:00am November 09, 2024 3:59pm Start: 11-28-2014 Flaxseed Oil-O delia 3,6,9 1 EACH capsule Active 1 NMA PO DAILY November 28, 2014 12:00am fluticasone propionate 0.05 mg/actuat metered dose nasal spray (9 sources) Corticosteroid Start: 02-24-2014 End: 11-09-2024 Fluticasone Propionate 1 SPRAY spray,suspension Discontinued 1 NMA NASAL DAILY February 24, 2014 1:00am November 09, 2024 3:59pm Start: 02-24-2014 Fluticasone Pr opionate Active 1 SPRAY NASAL DAILY February 24, 2014 12:00am Mussel Powder (9 sources) Start: 11-28-2014 End: 11-09-2024 Mussel Powder Discontinued 6 00 mg PO TWICE A DAY November 28, 2014 12:00am November 09, 2024 3:59pm Start: 11-28-2014 Mussel Powder Active 600 mg PO TWICE A DAY November 28, 2014 12:00am Start: 11-28-2014 Mussel Powder Active 600 MG PO TWICE A DAY November 27, 2014 11:00pm Start: 11-28-2014 Mussel Powder Active 600 MG PO TWICE A DAY November 28, 2014 12:00am Waco-3 Fatty Acids-Fish Oil (Waco 3 Fish Oil Softgel) 1 EACH capsule,delayed release(DR/EC) (6 sources) Start: 02-24-2014 End: 11-09-2024 take 1 capsule by mouth once daily Waco-3 Fatty Acids-Fish Oil (Waco 3 Fish Oil Softgel) 1 EACH capsule,delayed release(DR/EC) Discontinued 1 NMA PO DAILY February 24, 2014 1:00am November 09, 2024 3:59pm Start: 02-24-2014 take 1 capsule by [facility] once daily Waco-3 Fatty Acids-Fish Oil (Waco 3 Fish Oil Softgel) 1 EACH capsule,delayed release(DR/EC) Active 1 NMA PO DAILY February 24, 2014 1:00am Start: 02-24-2014 take 1 capsule by [facility] once daily Waco-3 Fatty Acids-Fish Oil ([place]aco 3 Fish Oil Softgel) 1 EACH capsule,delayed release(DR/EC) Active 1 EACH PO DAILY February 24, 2014 12:00am ondansetron 8 mg oral tablet (9 sources) Serotonin-3 Receptor Antagonist Start: 11-30-2014 End: 11-09-2024 take 1 tablet by mouth every eight hours as needed for nausea Ondansetron Hcl 8 MG tablet Discontinued 8 mg PO EVERY 8 HOURS NEEDED as needed for Nausea 20 0 November 30, 2014 12:00am November 09, 2024 3:59pm Problems Active Problems Problem Classification Problem Date Documented Date Episodic/Chronic Essential hypertension (1 source) Hypertensive disorder; Translations: [Essential (primary) hypertension] 01-31-2025 Chronic Menopausal disorders (3 sources) Atrophic vaginitis; Translations: [Postmenopausal atrophic vaginitis] Onset: 01-31-2025 01-31-2025 Chronic Osteoarthritis (1 source) Osteoarthritis; Translations: [Unspecified osteoarthritis, unspecified site] 01-31-2025 Chronic Osteoporosis (3 sources) Osteoporosis; Translations: [Age-related osteoporosis without current pathological fracture] Onset: 01-31-2025 01-31-2025 Chronic Other bone disease and musculoskeletal deformities (1 source) Osteopenia; Translations: [Other specified disorders of bone density and structure, unspecified site] 01-31-2025 Episodic Other ear and sense organ disorders (2 sources) Mixed conductive AND sensorineural hearing loss; Translations: [Mixed conductive and sensorineural hearing loss, unilateral, right ear with restricted hearing on the contralateral side] 06-09-2023 Chronic Other ear and sense organ disorders (3 sources) Sensorineural hearing loss, bilateral; Translations: [Sensorineural hearing loss, bilateral] Onset: 06-09-2023 06-09-2023 Chronic Other ear and sense organ disorders (4 sources) Mixed conductive and sensorineural hearing loss, unilateral, right ear with restricted hearing on the contralateral side; Translations: [Mixed conductive and sensorineural hearing loss, unilateral, right ear with restricted hearing on the contralateral side] Onset: 06-09-2023 Chronic Other ear and sense organ disorders (1 source) Sensorineural hearing loss, bilateral; Translations: [Sensorineural hearing loss, bilateral] Onset: 06-09-2023 Chronic Other ear and sense organ disorders (1 source) Impaired auditory discrimination; Translations: [Other abnormal auditory perceptions, right ear] 06-09-2023 Episodic Other ear and sense organ disorders (1 source) Subjective tinnitus of right ear; Translations: [Tinnitus, right ear] 06-09-2023 Episodic Other female genital disorders (2 sources) Vaginal odor; Translations: [Other specified noninflammatory disorders of vagina] 01-31-2025 Episodic Other female genital disorders (1 source) Other specified noninflammatory disorders of vagina; Translations: [Other specified noninflammatory disorders of vagina] Onset: 02-15-2025 Episodic Other screening for suspected conditions (not mental disorders or infectious disease) (3 sources) Encounter for screening mammogram for malignant neoplasm of breast; Translations: [Encounter for screening for other suspected endocrine disorder] Onset: 01-31-2025 Episodic Otitis media and related conditions (3 sources) Chronic right mastoiditis; Translations: [Chronic mastoiditis, right ear] Onset: 07-15-2023 07-15-2023 Chronic Unclassified (2 sources) 6MO F/U CHRONIC MASTOIDITIS, MIXED HEARING LOSS Onset: 01-19-2024 Past or Other Problems Problem Classification Problem Date Documented Date Episodic/Chronic Other ear and sense organ disorders (4 sources) Other abnormal auditory perceptions, right ear; Translations: [Other abnormal auditory perceptions, right ear] Onset: 06-09-2023 Episodic Other ear and sense organ disorders (2 sources) Tinnitus, right ear; Translations: [Tinnitus, right ear] Onset: 06-09-2023 Episodic Other non-traumatic joint disorders (1 source) Pain in unspecified knee; Translations: [Pain in unspecified knee] Onset: 07-20-2024 Episodic Otitis media and related conditions (8 sources) Tympanosclerosis involving tympanic membrane only; Translations: [Tympanosclerosis, right ear] Onset: 06-09-2023 06-09-2023 Episodic Results Test Name Value Interpretation Reference Range [facility] Reason for Exam: vaginal odor Normal vaginal marcell isolated. No yeast, Gardnerella, Neisseria or beta-hemolytic Streptococcus isolated. Normal [facility] Comment on above: Performed By: #### M 100.2000, M100.3200 #### [facility] [address] [place], [address] Calculated very low density lipoprotein (VLDL) cholesterol measurementOrdered By: Shara Antoine on 02-02-2025 Calculated very low density lipoprotein (VLDL) cholesterol measurement 13 mg/dL 5-40 [facility] Glucoseon 02-02-2025 Glucose [Mass/Vol] 91 mg/dL Normal 70-99 [facility] Comment on above: Performed By: #### L 501.0100, L500.4100, L501.9520, L506.1001 #### [facility] [address] [place], [address] LDL calc ser/plasOrdered By: Shara Antoine on 02-02-2025 Cholesterol in LDL [Mass/Vol] 171 mg/dL [facility] Comment on above: Egcdusyhfk=803-004 m g/dL & Higher Kdzq=346 mg/dL or greaterFriedwald Equation for LDL-C Lipid Profileon 02-02-2025 CHOL:HDL 3.03 Normal [facility] Comment on above: Performed By: #### L 501.0100, L500.4100, L501.9520, L506.1001 #### [facility] [address] [place], [address] Cholesterol [Mass/Vol] 275 mg/dL High <=200 [facility] Comment on above: Result Comment: Chol esterol level, Desirable <200 mg/dL Borderline high cholesterol 200-239 mg/dL High cholesterol >=240 mg/dL Recommendations of the NCEP Adult Treatment Panel for the following risk-cutoff thresholds for the [place] population. Performed By: #### L 501.0100, L500.4100, L501.9520, L506.1001 #### [facility] [address] [place], [address] Cholesterol in HDL [Mass/Vol] 91 mg/dL Normal [facility] Comment on above: Result Comment: Alice onal Cholesterol Education Program (NCEP) guidelines: <40 mg/dL: Low HDL-cholesterol (major risk factor for CHD) >= 60 mg/dL: High HDL-cholesterol (negative risk factor for CHD) HDL-cholesterol is affected by a number of factors, e.g. smoking, exercise, hormones, sex and age. Performed By: #### L 501.0100, L500.4100, L501.9520, L506.1001 #### [facility] [address] [place], [address] Cholesterol in LDL [Mass/Vol] 171 mg/dL Normal [facility] Comment on above: Result Comment: Bord kfbjql=013-979 mg/dL Higher Awru=009 mg/dL or greater Friedwald Equation for LDL-C Performed By: #### L 501.0100, L500.4100, L501.9520, L506.1001 #### [facility] [address] [place], [address] Cholesterol in VLDL [Mass/Vol] 13 mg/dL Normal 5-40 [facility] Comment on above: Performed By: #### L 501.0100, L500.4100, L501.9520, L506.1001 #### [facility] [address] [place], [address] Triglyceride [Mass/Vol] 65 mg/dL Normal [facility] Comment on above: Result Comment: The drugs N-Acetylcysteine and Metamizole may falsely depress this assay. Normal range: <150 mg/dL Borderline High: 150-199 mg/dL High: 200-499 mg/dL Very High: >500 mg/dL Performed By: #### L 501.0100, L500.4100, L501.9520, L506.1001 #### [facility] [address] [place], [address] Screening total cholesterol/ high density lipoprotein (HDL) cholesterol ratioOrdered By: Shara Antoine on 02-02-2025 Cholesterol.total/Choleste rol in HDL [Mass ratio] 3.03 {ratio} [facility] Serum glucose measurement (m ass/volume)Ordered By: Shara Antoine on 02-02-2025 Glucose [Mass/Vol] 91 mg/dL 70-99 [facility] Serum or plasma cholesterol in HDL measurement (mass/volume)Ordered By: Shara Antoine on 02-02-2025 Cholesterol in HDL [Mass/Vol] 91 mg/dL >40 [facility] Comment on above: National Cholesterol Education Program (NCEP) guidelines:<40 mg/dL: Low HDL-cholesterol (major risk factor for CHD)>= 60 mg/dL: High HDL-cholesterol (negative risk factor for CHD)HDL-cholesterol is affected by a number of factors, e.g. smoking, exercise, hormones, sex and age. Serum or plasma cholesterol measurement (mass/volume)Ordered By: Shara Antoine on 02-02-2025 Cholesterol [Mass/Vol] 275 mg/dL High <201 [facility] Comment on above: Cholesterol level, D esirable <200 mg/dLBorderline high cholesterol 200-239 mg/dLHigh cholesterol >=240 mg/dLRecommendations of the NCEP Adult Treatment Panel for the following risk-cutoff thresholds for the [place] population. TSH DL <= 0.005 mIU/L QnOrde red By: Shara Antoine on 02-02-2025 TSH Qn 2.820 uIU/mL 0.300-4.200 [facility] Thyroid Stim Hormone (TSH)on 02-02-2025 TSH 2.820 uIU/mL Normal 0.300-4.200 [facility] Comment on above: Performed By: #### L 501.0100, L500.4100, L501.9520, L506.1001 #### [facility] [place] [place], [id number] Triglycerides measurementOrd ered By: Shara Antoine on 02-02-2025 Triglyceride [Mass/Vol] 65 mg/dL <199 [facility] Comment on above: The drugs N-Acetylcy steine and Metamizole may falsely depress this assay. Normal range: <150 mg/dLBorderline High: 150-199 mg/dLHigh: 200-499 mg/dLVery High: >500 mg/dL Vitamin D,25 Hydroxyon 02-02 Vitamin D 25-OH 43.3 ng/mL Normal 30-100 [facility] Comment on above: Result Comment: Alexia min D Status Deficiency: <20 ng/mL (50nmol/L) Insufficiency: 20-30 ng/mL (50-75 nmol/L) Sufficiency: 30-100 ng/mL (75-250 nmol/L) Toxicity: >100 ng/mL (>250 nmol/L) Performed By: #### L 501.0100, L500.4100, L501.9520, L506.1001 #### [facility] [address] [place], [address] Gram Stainon 02-01-2025 GS Reason for Exam: vaginal odor Gram Stain 4+ Gram positive rods No Gram negative diplococci Rare White Blood Cells Normal [facility] Comment on above: Performed By: #### M 100.2000, M100.3200 #### [facility] [address] [place], [address] Genital cultureOrdered By: Kalli Antoine on 01-31-2025 Source specific culture Neisseria or beta-hemolytic Streptococcus isolated. [facility] Gram stainOrdered By: Karley Antoine on 01-31-2025 Microscopic observation Gram stain Nom (Unsp spec) [facility] Wire Straightener Office Visit Reporton 01-31-2025 Wire Straightener Office Visit Report [facility] [address], [address] [place] [address] OFFICE VISIT Date of Service: 01/31/25 MR#: [id number] Acct: [id number] Name: CAMILLE YO Rep #: [id number] : 1960 Provider: Dr. 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: No Is patient in pain?: No Allergies adhesive Adverse Reaction (Verified 01/31/25 09:51) Rash Medications ???Medication ???Instructions ???Recorded ???Confirmed ???Type lisinopril 10 mg tablet 10 mg PO QDAY 11/09/24 01/31/25 Hi story lisinopril 2.5 mg tablet 2.5 mg PO QDAY 11/09/24 01/31/25 H istory acetaminophen 650 mg 650 mg PO Q8H 01/31/25 01/31/25 Hi story tablet,extended release (Tylenol Arthritis Pain) cetirizine 10 mg capsule (Allergy 10 mg PO QDAY PRN 01/31/25 History Relief (cetirizine)) cholecalciferol (vitamin D3) 50 50 mcg PO QDAY 01/31/25 01/31/25 H istory mcg (2,000 unit) capsule estradiol 0.01% (0.1 mg/gram) 0.25 appful vaginal QDAY #42.5 01/31/25 Rx vaginal cream grams multivitamin 1 tab PO QDAY 01/31/25 01/31/25 Hi story Is last menstrual period known: No Patient : No : No PFSH Medical History Cataract Osteopenia Osteoarthritis Hypertension Surgical History S/P cataract extraction H/O mastoidectomy H/O carpal tunnel repair H/O: hysterectomy Family History Father Suicide Mother Diabetes Hypertension Aunt Breast cancer Social History (Updated 01/31/25 @ 10:04 by Ryanne Patel) Smoking Status: Never smoker alcohol intake: current Alcohol type: wine substance use type: does not use frequency: 5-6 times per week additional social history: - [place] History 2 Elective abortions Hx Para 2 Spontaneous abortions Hx # Term Pregnancies Ectopic pregnancies Hx # Pregnancies Multiple births # of living children Past Pregnancies Del. Date Name GA/Weeks Outcome Route Bth Weight Gen Labor Lgth Anesthesia Del Locatn Provider FOB Unknown Hemady Unknown Bam [facility] Encounter for routine gynecological examination Details: CAMILLE YO is a 64 year old who presents for annual exam. Last PAP: prior to hyst (done at [facility]) History of abnormal PAP: no Last mammogram: History of abnormal mammogram: no dexa ; 2022, has osteoporosis Colon cancer screening: up to date Other preventative health care screenings:was seeing Steph Shields before she retired complains of vaginal dryness, stiff joints takes lisinopril for high blood pressure., needs new pcp. Female Reproductive History Questions: sexually active: Yes, dyspareunia: No and PCB: No Menopausal Symptoms: No hot flashes, No night sweats, No weight change, No mood changes, No difficulty concentrating, No sleep problems and No change in libido ROS Const Constitutional: Reports as per HPI; Denies fatigue, increased appetite, poor appetite, night sweats, weight gain or weight loss Cardio Card: Denies chest pain Resp Resp: Denies cough or dyspnea GI GI: Reports as per HPI; Denies abdominal pain, bloating, constipation, nausea or vomiting : Reports as per HPI and other; Denies difficulty voiding, dysuria, hematuria, hot flashes, nipple discharge, pelvic pain, prolapse symptoms, urinary frequency, urinary incontinence, urinary urgency, vaginal discharge, vaginal dryness, vaginal odor or vaginal pruritus Skin Skin/Breast: Denies changing lesions, breast mass, breast pain, breast skin changes or nipple discharge Psych Psych: Denies anxiety, change in libido, depression or difficulty concentrating Exam Const General: cooperative, healthy appearing, comfortable, no acute distress, well developed and well groomed HENMT Head: normal to inspection and normocephalic Ears: hearing grossly normal bilaterally and external ears normal Nose: external nose normal Face and sinus: normal facial exam Neck Neck: normal visual inspection, full ROM and no lymphadenopathy Thyroid: thyroid normal Chest Chest palpation inspection: normal inspection of the chest Breast inspection: normal inspection of the breasts and normal inspection of the axillae Breast palpation: normal palpation of the breasts, normal palpation of the axillae and no axillary lymphadenopathy Resp Effort Inspection: normal respiratory effort GI Inspection: normal to inspec (more content not included)... Normal [facility] Knee 4 or More Viewson 07-16 Knee 4 or More Views [facility] [address] [place] [address] Knee 4 or More Views MR#: [id number] Acct: [id number] Name: CAMILLE YO Rep #: [id number] : 1960 F 63 From: Kiel Valencia DO PCP: Dr. Steph Pereira MD Status: REG CLI Study: Knee 4 or More Views Date of Exam: 07/16/24 Exam# [id number] Ordering Dr: Greg Sahu MD PROCEDURE: KNEE 4 OR MORE VIEWS 07/16/2024 REASON FOR EXAM: Pain Right knee) M 25.569). TECHNIQUE: 4 view(s) of the right knee COMPARISON: None. FINDINGS: Bones: No fracture. No dislocation. No significant cartilage loss or periarticular osteophytosis Joints: Unremarkable Effusion: Joint effusion suprapatellar bursa Soft tissues: Unremarkable Other: RAD/Knee 4 or More Views IMPRESSION: No acute process detected. Joint effusion. No significant degenerative changes appreciated. Reading [facility] CC: Dr. Steph Pereira MD; Dr. Greg Sahu MD Personal Lines Account Executive: Signed [facility] MR IAC WITH AND WITHOUT CONT [facility] 07-10-2023 MR IAC WITH AND WITHOUT CONTRAST EXAMINATION: MR IAC WITH AND WITHOUT CONTRAST HISTORY: ORDERING SYSTEM PROVIDED HISTORY: Asymmetric hearing loss, tinnitus, TECHNOLOGIST PROVIDED HISTORY: Illness/Other Reason for Exam: Asymmetric hearing loss, tinnitus, Mixed conductive and sensorineural hearing loss of right ear with restricted hearing of left ear Encounter Type: Initial Additional Signs and Symptoms: . ORDERING SYSTEM PROVIDED DIAGNOSIS CODES: H90.A31 Mixed conductive and sensorineural hearing loss of right ear with restricted hearing of left ear H93.291 Impaired auditory discrimination, right H93.11 Subjective tinnitus of right ear COMPARISON: None. TECHNIQUE: Multiplanar, multisequence imaging of the brain with and without contrast utilizing IAC protocol. CONTRAST: GADOTERATE MEGLUMINE 0.5 MMOL/ML (376.9 MG/ML) INTRAVENOUS SOLUTION - 12 mL, FINDINGS: No acute ischemia. No acute intracranial hemorrhage. Midline structures and the craniocervical junction is within limits of normal. The ventricles and sulci are of normal size, shape and position. No significant brain parenchymal abnormality. No evidence of abnormal intraparenchymal enhancement. No evidence of vestibular schwannoma. IMPRESSION: No acute intracranial abnormality. No vestibular schwannoma. SEA/lab Workstation ID: [id number] Dictated by: HELEN HERNANDEZ on FriJul 11, 2023 7:47:43 AM EDT Transcribed by: CAL CORDOVA on FriJul 11, 2023 8:02:27 AM EDT Finalized by: HELEN HERNANDEZ on FriJul 11, 2023 4:10:46 PM EDT [facility] Comment on above: Order Comment: Injur y/Trauma or Illness?:Illness/Other How long have you had these symptoms (acute/chronic)?:Acute Reason for exam?:asymetric hearing loss, tinitus, Mixed conductive and sensorineural hearing loss of right ear with restricted hearing of left ear Type of Exam?:Initial Additional signs and symptoms?:. Creatinine [Mass/Vol]on 05-22 GFR/1.73 sq M.predicted CKD-EPI (S/P/Bld) [Vol rate/Area] 76 - PINF [facility] Comment on above: Estimated GFR was ca lculated using the 2020 CKD-EPI creatinine equation. Interpretation and review of laboratory results Normal [facility] has implemented the eGFR calculation approach that does not have a coefficient for race that conforms to the NKF-ASN Task Force Recommendations. [facility] Creatinine, Serumon 06-09-19 Creatinine [Mass/Vol] 0.86 mg/dL 0.60 - 1.20 mg/dL [facility] Basophil percentageOrdered B y: Steph Pereira on 05-15-2023 Chloride [Moles/Vol] 103 mmol/L 98-107 [facility] Cholesterol [Mass/Vol] 205 mg/dL <200 [facility] Comment on above: <200 mg/dL Desirable 200-240 mg/dL Borderline >240 mg/dL High Risk Glucose [Mass/Vol] 71 mg/dL 74-106 [facility] Potassium [Moles/Vol] 3.4 mmol/L 3.5-5.1 [facility] Sodium [Moles/Vol] 139 mmol/L 136-145 [facility] Triglyceride [Mass/Vol] 68 mg/dL <199 [facility] Comment on above: The drugs N-Acetylcy steine and Metamizole may falsely depress this assay.Serum Triglycerides Reference Interval Normal <150 mg/dL Borderline high 150 - 199 mg/dL High 200 - 499 mg/dL Very High > or = 500 mg/dL High density lipoprotein (HD L) measurementOrdered By: Steph Pereira on 05-15-2023 Cholesterol in HDL (Body fld) [Mass/Vol] 92 mg/dL >40 [facility] Comment on above: The drugs N-Acetylcy steine and Metamizole may falsely depress this assay. Reference Range HDL <40 mg/dL Low HDL Cholesterol HDL >or= 60 mg/dL High HDL Cholesterol Laboratory - Chemistry and C hemistry - challengeOrdered By: Steph Pereira on 05-15-2023 ALT [Catalytic activity/Vol] 28 U/L 13-56 [facility] CO2 [Moles/Vol] 32.0 mmol/L 21.0-32.0 [facility] Urea nitrogen/Creatinine [Mass ratio] 19.8 mg/mg 10-20 [facility] Low density lipoprotein (LDL ) cholesterol measurementOrdered By: Steph Pereira on 05-15-2023 Cholesterol in LDL (Body fld) [Moles/Vol] 99 mg/dL 0-130 [facility] No Panel InformationOrdered By: Steph Pereira on 05-15-2023 Estimated GFR (MDRD) Amer 76 mL/min >60 [facility] Comment on above: GFR Calc Estimated GFR (MDRD) Non-Af Amer 63 mL/min >60 [facility] Comment on above: Non- GFR Calc Serum or plasma calcium alyson urement (mass/volume)Ordered By: Steph Pereira on 05-15-2023 Calcium [Mass/Vol] 9.4 mg/dL 8.5-10.1 [facility] Serum or plasma creatinine m easurement (mass/volume)Ordered By: Steph Pereira on 05-15-2023 Creatinine [Mass/Vol] 0.96 mg/dL 0.55-1.02 [facility] Comment on above: The validity of the calculated GFR & GFRAA in patients over 70 years has not been determined. Clinical correlation is essential. Serum or plasma urea nitroge n measurement (mass/volume)Ordered By: Steph Pereira on 05-15-2023 Urea nitrogen [Mass/Vol] 19 mg/dL 7-18 [facility] Thin prep Papanicolaou smear with manual screeningOrdered By: Steph Pereira on 05-15-2023 Thin prep Papanicolaou smear with manual screening 24 U/L 15-37 [facility] Thin prep Papanicolaou smear with manual screening 4 5-15 [facility] Thin prep Papanicolaou smear with manual screening 9.8 mg/L NO RANGE EST. [facility] Urine albumin/creatinine rat io for detection of microalbuminuriaOrdered By: Steph Pereira on 05-15-2023 Albumin/Creatinine DL <= 1.0 mg/L (24H U) [Ratio] 9.0 mg/g CRE <30 [facility] Urine creatinine measurement (mass/volume)Ordered By: Steph Pereira on 05-15-2023 Creatinine (U) [Mass/Vol] 109.00 mg/dL NO RANGE EST. [facility] Very low density lipoprotein (VLDL) cholesterol measurementOrdered By: Steph Pereira on 05-15-2023 Cholesterol in VLDL Calc [Moles/Vol] 14 mg/dL 5-40 [facility] Basophil percentageOrdered B y: Steph Pereira on 02-21-2023 Chloride [Moles/Vol] 102 mmol/L 98-107 [facility] Cholesterol [Mass/Vol] 248 mg/dL <200 [facility] Comment on above: <200 mg/dL Desirable 200-240 mg/dL Borderline >240 mg/dL High Risk Glucose [Mass/Vol] 90 mg/dL 74-106 [facility] Potassium [Moles/Vol] 3.7 mmol/L 3.5-5.1 [facility] Sodium [Moles/Vol] 137 mmol/L 136-145 [facility] Triglyceride [Mass/Vol] 51 mg/dL <199 [address] [facility] Comment on above: The drugs N-Acetylcy steine and Metamizole may falsely depress this assay.Serum Triglycerides Reference Interval Normal <150 mg/dL Borderline high 150 - 199 mg/dL High 200 - 499 mg/dL Very High > or = 500 mg/dL Laboratory - Chemistry and C hemistry - challengeOrdered By: Steph Pereira on 02-21-2023 ALT [Catalytic activity/Vol] 24 U/L 13-56 [facility] CO2 [Moles/Vol] 32.0 mmol/L 21.0-32.0 [facility] Urea nitrogen/Creatinine [Mass ratio] 25.1 mg/mg 10-20 [facility] No Panel InformationOrdered By: Steph Pereira on 02-21-2023 Estimated GFR (MDRD) Amer 84 mL/min >60 [facility] Comment on above: GFR Calc Estimated GFR (MDRD) Non-Af Amer 69 mL/min >60 [facility] Comment on above: Non- GFR Calc Serum or plasma calcium alyson urement (mass/volume)Ordered By: Steph Pereira on 02-21-2023 Calcium [Mass/Vol] 9.0 mg/dL 8.5-10.1 [facility] Serum or plasma cholesterol in HDL measurement (mass/volume)Ordered By: Steph Pereira on 02-21-2023 Cholesterol in HDL [Mass/Vol] 83 mg/dL >40 [facility] Comment on above: The drugs N-Acetylcy steine and Metamizole may falsely depress this assay. Reference Range HDL <40 mg/dL Low HDL Cholesterol HDL >or= 60 mg/dL High HDL Cholesterol Serum or plasma cholesterol in VLDL measurement (mass/volume)Ordered By: Steph Pereira on 02-21-2023 Cholesterol in VLDL [Mass/Vol] 10 mg/dL 5-40 [facility] Serum or plasma creatinine m easurement (mass/volume)Ordered By: Steph Pereira on 02-21-2023 Creatinine [Mass/Vol] 0.88 mg/dL 0.55-1.02 [facility] Comment on above: The validity of the calculated GFR & GFRAA in patients over 70 years has not been determined. Clinical correlation is essential. Serum or plasma low density lipoprotein (LDL) cholesterol measurement (mass/volume)Ordered By: Steph Pereira on 02-21-2023 Cholesterol in LDL [Mass/Vol] 155 mg/dL 0-130 [facility] Serum or plasma urea nitroge n measurement (mass/volume)Ordered By: Steph Pereira on 02-21-2023 Urea nitrogen [Mass/Vol] 22 mg/dL 7-18 [facility] Thin prep Papanicolaou smear with manual screeningOrdered By: Steph Pereira on 02-21-2023 Thin prep Papanicolaou smear with manual screening 18 U/L 15-37 [facility] Thin prep Papanicolaou smear with manual screening 3 5-15 [facility] Basophil percentageOrdered B y: Dr. Pereira on 03-18-2022 Cholesterol [Mass/Vol] 188 mg/dL <200 [facility] Comment on above: <200 mg/dL Desirable 200-240 mg/dL Borderline >240 mg/dL High Risk Triglyceride [Mass/Vol] 68 mg/dL <199 [facility] Comment on above: The drugs N-Acetylcy steine and Metamizole may falsely depress this assay.Serum Triglycerides Reference Interval Normal <150 mg/dL Borderline high 150 - 199 mg/dL High 200 - 499 mg/dL Very High > or = 500 mg/dL Laboratory - Chemistry and C hemistry - challengeOrdered By: Dr. Pereira on 03-18-2022 ALT [Catalytic activity/Vol] 21 U/L 13-56 [facility] Serum or plasma cholesterol in HDL measurement (mass/volume)Ordered By: Dr. Pereira on 03-18-2022 Cholesterol in HDL [Mass/Vol] 87 mg/dL >40 [facility] Comment on above: The drugs N-Acetylcy steine and Metamizole may falsely depress this assay. Reference Range HDL <40 mg/dL Low HDL Cholesterol HDL >or= 60 mg/dL High HDL Cholesterol Serum or plasma cholesterol in VLDL measurement (mass/volume)Ordered By: Dr. Pereira on 03-18-2022 Cholesterol in VLDL [Mass/Vol] 14 mg/dL 5-40 [facility] Serum or plasma low density lipoprotein (LDL) cholesterol measurement (mass/volume)Ordered By: Dr. Pereira on 03-18-2022 Cholesterol in LDL [Mass/Vol] 87 mg/dL 0-130 [facility] Thin prep Papanicolaou smear with manual screeningOrdered By: Dr. Pereira on 03-18-2022 Thin prep Papanicolaou smear with manual screening 18 U/L 15-37 [facility] Basophil percentageon 2021 Chloride [Moles/Vol] 103 mmol/L 98-107 [facility] [address] [facility] Work Phone: Cholesterol [Mass/Vol] 253 mg/dL <[address] [facility] Work Phone: Comment on above: <200 mg/dL Desirable 200-240 mg/dL Borderline >240 mg/dL High Risk Glucose [Mass/Vol] 89 mg/dL 74-[address] [facility] Work Phone: Potassium [Moles/Vol] 3.5 mmol/L 3.5-5.1 [facility] Work Phone: Sodium [Moles/Vol] 142 mmol/L 136-145 [facility] Work Phone: Triglyceride [Mass/Vol] 60 mg/dL <199 [address] [facility] Work Phone: Comment on above: The drugs N-Acetylcy steine and Metamizole may falsely depress this assay.Serum Triglycerides Reference Interval Normal <150 mg/dL Borderline high 150 - 199 mg/dL High 200 - 499 mg/dL Very High > or = 500 mg/dL Laboratory - Chemistry and C hemistry - challengeon 01-07-2022 CO2 [Moles/Vol] 29.0 mmol/L 21.0-32.0 [facility] Work Phone: Urea nitrogen/Creatinine [Mass ratio] 19.0 mg/mg 10-20 [facility] Work Phone: No Panel Informationon 01-07 Estimated GFR (MDRD) Amer 83 mL/min >60 [facility] Work Phone: Comment on above: GFR Calc Estimated GFR (MDRD) Non-Af Amer 68 mL/min >60 [facility] Work Phone: Comment on above: Non- GFR Calc Serum or plasma calcium alyson urement (mass/volume)on 01-07-2022 Calcium [Mass/Vol] 9.3 mg/dL 8.5-10.1 [facility] Work Phone: Serum or plasma cholesterol in HDL measurement (mass/volume)on 01-07-2022 Cholesterol in HDL [Mass/Vol] 87 mg/dL >40 [facility] Work Phone: Comment on above: The drugs N-Acetylcy steine and Metamizole may falsely depress this assay. Reference Range HDL <40 mg/dL Low HDL Cholesterol HDL >or= 60 mg/dL High HDL Cholesterol Serum or plasma cholesterol in VLDL measurement (mass/volume)on 01-07-2022 Cholesterol in VLDL [Mass/Vol] 12 mg/dL 5-40 [facility] Work Phone: Serum or plasma creatinine m easurement (mass/volume)on 01-07-2022 Creatinine [Mass/Vol] 0.89 mg/dL 0.55-1.02 [facility] Work Phone: Comment on above: The validity of the calculated GFR & GFRAA in patients over 70 years has not been determined. Clinical correlation is essential. Serum or plasma low density lipoprotein (LDL) cholesterol measurement (mass/volume)on 01-07-2022 Cholesterol in LDL [Mass/Vol] 154 mg/dL 0-130 [facility] Work Phone: Serum or plasma urea nitroge n measurement (mass/volume)on 01-07-2022 Urea nitrogen [Mass/Vol] 17 mg/dL - [facility] Work Phone: Thin prep Papanicolaou smear with manual screeningon 01-07-2022 Thin prep Papanicolaou smear with manual screening 09-02 [facility] Work Phone: Vital Signs Date Time Vital Sign Value Performing Clinician Facility 01-31-2025 09:51-0400 Body height 168.[address] Steph Pereira MD Work Phone: [facility] 01-31-2025 09:51-0400 Body mass index (BMI) [Ratio] 21.9 kg/m2 Dr. Stehp Pereira MD Work Phone: [facility] 01-31-2025 09:51-0400 Body weight 62.[address] Steph Pereira MD Work Phone: [facility] 01-31-2025 09:51-0400 Diastolic blood pressure 95 mm[Hg] Dr. Steph Pereira MD Work Phone: [facility] 01-31-2025 09:51-0400 Systolic blood pressure 151 mm[Hg] Dr. Steph Pereira MD Work Phone: [facility] 07-07-2024 10:03-0400 Body height 168.[address] Steph Pereira MD Work Phone: [facility] 07-07-2024 10:03-0400 Body weight 63.[address] Steph Pereira MD Work Phone: [facility] 05-27-2024 09:33-0500 Body weight 64.[address] Steph Pereira MD Work Phone: [facility] 07-15-2023 10:42-0400 Body height 168.9 cm Yuli Yarbrough MD Work Phone: [facility] 07-15-2023 10:42-0400 Body mass index (BMI) [Ratio] 21.96 kg/m2 Yuli Yarbrough MD Work Phone: [facility] 07-15-2023 10:42-0400 Body temperature 97.39 [degF] Yuli Yarbrough MD Work Phone: [facility] 07-15-2023 10:42-0400 Body weight 62.64 kg Yuli Yarbrough MD Work Phone: [facility] 06-09-2023 10:27-0500 Body temperature 97.59 [degF] Yuli Yarbrough MD Work Phone: [facility] 06-09-2023 10:27-0500 Body weight 64.05 kg Yuli Yarbrough MD Work Phone: [facility] 05-16-2022 12:58-0500 Body height 168.28 cm [facility] Encounters Encounter Date Encounter Type Care Provider Facility Start: [facility] Start: 02-02-[address] Ludivina Coats MD -Lab [facility] Start: 02-02-2025 End: 02-02-2025 ambulatory Steph Pereira Facility:[facility] Start: 01-31-2025 Encounter for gynecological examination (general) (routine) with abnormal findings Shara Celestin [facility] Start: 01-31-[address] Shara Celestin DO -Laboratory Specimen Work Phone: Start: 01-31-2025 End: 01-31-[address] Shara Celestin DO -[facility] Work Phone: Start: 01-31-2025 End: 01-31-[address] Shara Celestin DO [facility] Start: 01-31-2025 End: 01-31-[address] Steph Pereira MD Work Phone: [facility] Start: 01-31-2025 End: 01-31-2025 ambulatory Steph Pereira Facility:[facility] Start: 09-02-2024 ambulatory Steph Pereira Facility: [facility] Start: 07-16-2024 End: 07-16-[address] Steph Pereira MD Work Phone: [facility] Work Phone: Start: 07-16-2024 End: 07-16-[address] Greg Sahu MD -Radiology, [place] Work Phone: Start: 07-16-2024 End: 07-16-2024 ambulatory Steph Pereira Facility:[facility] Start: 07-07-2024 End: 07-19-[address] Steph Pereira MD -[facility] Work Phone: Start: 07-07-2024 End: 07-19-[address] Steph Pereira MD Work Phone: [facility] Work Phone: Start: 05-27-2024 End: 06-18-[address] 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; Tympanosclerosis involving tympanic membrane only, right Start: 07-15-2023 End: 07-15-2023 ambulatory YULI YARBROUGH [facility] Start: 07-10-2023 End: 07-10-2023 ambulatory [facility] Start: 06-09-2023 End: 06-13-2023 ambulatory [facility] Start: 06-09-2023 End: 06-09-2023 Office outpatient visit 25 minutes Yuli Yarbrough MD Work Phone: [facility] Comment on above: Mixed conductive and sensorineural hearing loss of right ear with restricted hearing of left ear (Primary Dx); Impaired auditory discrimination, right; Tympanosclerosis involving tympanic membrane only, right; 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; Sensorineural hearing loss, bilateral; Subjective tinnitus of right ear Start: 06-09-2023 End: 06-13-2023 Clinical Support Armando Albright Work Phone: [facility] Comment on above: Sensorineural hearin g loss, bilateral Start: 05-29-2023 End: 05-29-2023 ambulatory [facility] Work Phone: Start: 05-29-2023 End: 05-29-2023 Patient encounter procedure [facility]-Outpatient Breast Imaging Work Phone: Start: 05-15-2023 End: 05-15-2023 ambulatory [facility] Work Phone: Start: 05-15-2023 End: 05-15-2023 Patient encounter procedure [facility] Start: 02-21-2023 End: 02-21-2023 ambulatory [facility] Work Phone: Start: 02-21-2023 End: 02-21-2023 Patient encounter procedure [facility]-Laboratory, [facility] Start: 05-16-2022 End: 05-16-2022 ambulatory [facility] Work Phone: Start: 05-16-2022 End: 05-16-2022 Patient encounter procedure [facility]-Outpatient Bone Densitometry Start: 03-18-2022 End: 03-18-2022 ambulatory [facility] Work Phone: Start: 03-18-2022 End: 03-18-2022 [facility] Start: 01-07-2022 End: 01-07-2022 ambulatory [facility] Work Phone: Start: 01-07-2022 End: 01-07-2022 Patient encounter procedure [facility] Procedures Date Procedure Procedure Detail Performing Clinician Start: 02-02-2025 Vitamin D, 25-hydrox y measurement Dr. Steph Pereira MD Work Phone: Comment on above: Vitamin D StatusDefi ciency: <20 ng/mL (50nmol/L)Insufficiency: 20-30 ng/mL (50-75 nmol/L)Sufficiency: 30-100 ng/mL (75-250 nmol/L)Toxicity: >100 ng/mL (>250 nmol/L) Start: 01-31-2025 Gram stain microscopy D rLuis Pereira MD Work Phone: Start: 01-31-[address] Steph Pereira MD Work Phone: Start: 07-16-2024 X-ray of knee, four or more views Dr. Steph Pereira MD Work Phone: Start: 05-29-2023 Screening mammography Start: 05-16-2022 Dual energy X-ray absorptiometry Start: 05-16-2022 Screening mammography Plan of Treatment Date Care Activity Detail Author Start: 02-03-2029 Tetanus vaccination Tetanus: Every 1 0yrs [facility] Start: 06-14-2024 End: 06-14-2024 Patient encounter procedure 06/14/2024 10:15 AM EST Office Visit [facility] [address] [place] [address] Yuli Yarbrough MD [address] [facility] [address] [place] [address] [facility] Start: 01-19-2024 End: 01-19-2024 Patient encounter procedure 01/19/2024 10:15 AM EDT Office Visit [facility] [address] [place] [address] Yuli Yarbrough MD [address] [facility] [address] [place] [address] [facility] Start: 07-08-2023 End: 07-08-2023 Patient encounter procedure 07/08/2023 10:00 AM EDT Office Visit [facility] [address] [place] [address] Yuli Yarbrough MD [address] [facility] [address] [place] [address] [facility] Start: 12-20-2022 COVID-19 Vaccine ( season) COVID-19 Vaccine () [facility] Start: 2010 Screening for malign ant neoplasm of colon Flexible sigmoidoscopy [facility] Start: 2000 Screening for malign ant neoplasm of breast Mammogram [facility] Start: 1990 Screening for malign ant neoplasm of cervix [facility] Start: 1981 Screening for malign ant neoplasm of cervix Pap Smear [facility] Start: 1978 Hepatitis C screening Hepatitis C Sc reening [facility] Start: 12-17-1975 HIV screening HIV Screening [facility] Start: 1972 Depression screening using PHQ-9 (Patient Health Questionnaire 9) score Depression Screening (PHQ-2/9) [facility] Start: 12-17-1963 History and physical examination, annual for health maintenance Wellness Visit [facility] Start: 1960 Screening for malign ant neoplasm of colon [facility] DXA Bone [Mass/Area] Bone density [facility] MG Breast - bilatera l Screening [facility] End: 06-09-2024 MR Internal auditory canal WO and W contrast IV MR IAC With And Without Contrast Imaging Routine Mixed conductive and sensorineural hearing loss of right ear with restricted hearing of left ear Impaired auditory discrimination, right Subjective tinnitus of right ear 1 Occurrences starting 06/09/2023 until 06/09/2024 [facility] Work Phone: Comment on above: 1 Occurrences starti ng 06/09/2023 until 06/09/2024 Immunizations Immunization Date Immunization Notes Care Provider Mery turner 02-07-2014 Influenza virus vaccine W [facility] Payers Date Payer Category Payer Self-pay [id number] 2023 Unknown MMO [employer] HMO [id number] 2023-Present [phone] [address] [place] [address] [id number] 2022 Private Health Insurance [id number] 2014 Unknown [id number] 1960 Unknown [id number] 03 1960 Unknown [id number] [id number] 03 1960 Unknown [id number] [id number] 03 1960 Unknown [id number] [id number] 03 1960 Unknown [id number] [id number] 03 1960 Unknown [id number] [id number] 03 Unknown [id number] 2.16.840.1.558760.3.579.2.4 62 Unknown [id number] [id number] 62 Unknown [id number] [id number] 62 Unknown [id number] [id number] 62 Unknown [id number] [id number] 62 Unknown [id number] [id number] 62 Unknown [id number] [id number] 62 Unknown [id number] 62 Social History Date Type Detail Facility Start: 11-28-2014 End: 11-28-2014 Tobacco smoking status CAIS Unknown if ever smoked [facility] Start: 1960 Sex Assigned At Female W [facility] Start: 06-09-2023 End: 01-31-2025 Tobacco smoking status NHIS Never smoked tobacco [facility] Start: 06-09-2023 Tobacco use and exposure Smokeless tobacco non-user [facility] Start: 06-09-2023 End: 07-15-2023 Alcohol intake Current drinker of alcohol (finding) [facility] Start: 1960 Sex Assigned At Not on file [facility] Start: 06-09-2023 Gender identity Not on file [facility] Start: 06-09-2023 End: 07-15-2023 Alcohol intake [facility] Start: 07-20-2024 End: 07-20-2024 Sex Female (finding) [facility] Clinical Notes 06-09-2023 to 01-31-2025 Yuli Yarbrough MD - 07/15/2023 11:11 AM Joselin Saldaña MA - 07/15/2023 10:49 AM Armando Goodman AuD - 06/09/2023 10:40 AM Yuli Lang MD - 06/09/2023 10:28 AM EST Note Date & Type Note Facility 01-31-2025 Progress note [facility] 07-17-2024 Radiology Diagnostic study note [facility] Imaging Services [address] [place], [place] [id number] Knee 4 or More Views MR#: [id number] Acct: [id number] Name: CAMILLE YO Rep #: [id number] : 1960 F 63 From: [facility] DO PCP: Dr. Steph Pereira MD Status: REG CLI Study:Knee 4 or More Views Date of Exam: 07/16/24 Exam# [id number] Ordering Dr: Greg Sahu MD PROCEDURE: KNEE 4 OR MORE VIEWS 07/16/2024 REASON FOR EXAM: Pain Right knee) M 25.569). TECHNIQUE: 4 view(s) of the right knee COMPARISON: None. FINDINGS: Bones: No fracture. No dislocation. No significant cartilage loss or periarticular osteophytosis Joints: Unremarkable Effusion: Joint effusion suprapatellar bursa Soft tissues: Unremarkable Other: RAD/Knee 4 or More Views IMPRESSION: No acute process detected. Joint effusion. No significant degenerative changesappreciated. Reading Location: [facility]- CC: Dr. Steph Pereira MD; Dr. Greg Sahu MD ~ Personal Lines Account Executive: Signed [facility] 01-19-2024 Note [facility] [address] [facility] ENT [facility] [address] [facility] [place] [address] Dept: [phone] Yuli Yarbrough MD Camille Yo 63 y.o. female Patient presents with a chief complaint of 6MO F/U CHRONIC MASTOIDITIS, MIXED HEARING LOSS Ht 5' 6.5" Wt 63.7 kg (140 lb 6.4 oz) BMI 22.32 kg/m History of Presenting Illness: The patient/caregiver reports a history of complaint with the following features: She presents for follow-up of her right mastoid disease. There is no ear pain or discharge complaints. She has been using her 's old hearing aids that seem to be helping with her hearing. Review of systems covering 10 systems is reviewed and pertinent positives and negatives are noted as above. Past Medical History: Diagnosis Date HL (hearing loss) Current Outpatient Medications: cholecalciferol, vitamin D3, 50 mcg (2,000 unit) Tab, 1 (one) tablet (2,000 Units total) every night at bedtime ., Disp: , Rfl: lisinopriL-hydrochlorothiazide (PRINZIDE,ZESTORETIC) 10-12.5 mg per tablet, Take 1 (one) tablet by mouth daily ., Disp: , Rfl: alendronate (FOSAMAX) 70 mg/75 mL solution, Take 75 mL (70 mg total) by mouth every 7 days Take in the morning with a full glass of water, on an empty stomach, and do not take anything else by mouth or lie down for the next 30 min. ., Disp: , Rfl: atorvastatin (LIPITOR) 10 MG tablet, Take 1 (one) tablet (10 mg total) by mouth daily ., Disp: , Rfl: calcium-vitamin D (OS-KRISS +D) 500 mg-5 mcg (200 unit) per tablet, Take 1 (one) tablet by mouth 2 (two) times a day with meals ., Disp: , Rfl: lisinopriL (PRINIVIL,ZESTRIL) 10 MG tablet, 1 (one) tablet (10 mg total) every night at bedtime ., Disp: , Rfl: Allergies Allergen Reactions Certolizumab Pegol Unknown Adhesive Rash History reviewed. No pertinent surgical history. Social History Socioeconomic History Marital status: Tobacco Use Smoking status: Never Smokeless tobacco: Never Substance and Sexual Activity Alcohol use: Yes Alcohol/week: 2.0 standard drinks of alcohol Types: 1 Glasses of wine, 1 Cans of beer per week Drug use: Never Sexual activity: Yes Partners: Male control/protection: Vasectomy Comment: hysterectomy Family History Problem Relation Age of Onset Diabetes Mother PHYSICAL EXAM: The patient was examined today 01/19/2024 with findings as follows: CONSTITUTIONAL: General Appearance: well-appearing, nontoxic, alert, no acute distress Communication: normal voicing, hearing intact to spoken voice HEAD/FACE: Head: atraumatic, normocephalic, no lesions Facial Inspection: no lesions, healthy skin Facial Strength: motor strength normal, symmetric strength, symmetric movement EYES: Pupils: PERRLA, extra-ocular movements intact, no nystagmus, sclera white, no redness of eyes, no watering of eyes EARS: Bilateral External Ears: no pits, no tags Right External Ear: normally formed, no lesions, no mastoid tenderness Left External Ear: normally formed, no lesions, no mastoid tenderness Right External Auditory Canal: debris of mastoid cavity removed, healthy skin, no obstructing cerumen, no discharge Left External Auditory Canal: normal, healthy skin, no obstructing cerumen, no discharge Right Tympanic Membrane: normal landmarks, central tympanosclerosis with retraction along malleus to incus, anterior perforation, no cholesteatoma Left Tympanic Membrane: normal landmarks, translucent, no perforation Hearing: intact to spoken voice NECK: Neck: no masses, trachea midline, normal range of motion, no cysts or pits, no tenderness to palpation LYMPH NODES: Cervical: no palpable lymph node enlargement SKIN: General Appearance: no lesions, warm and dry, normal turgor, no bruising PSYCHIATRIC: Mood and affect: normal mood, normal affect DEBRIDEMENT OF MASTOID CAVITY (39089) PROCEDURE PERFORMED BY: Yuli Yarbrough MD, MD PROCEDURE DATE: 01/19/2024 With the patient and/or caregiver's consent, the patient is positioned in the exam chair and an otic speculum placed into the right ear canal. Under binocular microscopic visualization there is noted to be squamous debris within the mastoid cavity. This is removed with a micro ear pick and a # 5 suction as needed to reveal a healthy mastoid cavity. The tympanic membrane remnant is perforated. Upon completion, no topical agent is applied.The patient tolerated the procedure well without injury or bleeding, and is instructed to avoid water exposure the ear. Assessment and Plan: He right mastoid cavity has some debris that is removed. There is no middle ear cholesteatoma, but a small perforation anterior to the malleus is noted after debris removal. She has benefited from hearing aids and I see no reason not to continue with their use. The patient and/or caregiver is advised on the avoidance of water exposure to the ear and mechanical trauma such as the use of (more content not included)... [facility] 07-15-2023 History of Present illness Narrative [facility] [address] [facility] ENT [place] [address] [facility] [place] [address] Dept: [phone] Yuli Yarbrough MD Camille Yo 62 y.o. 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 She reports that the hearing continues to be bothersome on the right. She has had a right mastoidectomy in the past and has a small residual perforation historically on the right. Review of systems covering 10 systems is reviewed and pertinent positives and negatives are noted as above. Past Medical History: Diagnosis Date HL (hearing loss) Current Outpatient Medications: alendronate (FOSAMAX) 70 mg/75 mL solution, Take 75 mL (70 mg total) by mouth every 7 days Take in the morning with a full glass of water, on an empty stomach, and do not take anything else by mouth or lie down for the next 30 min. ., Disp: , Rfl: atorvastatin (LIPITOR) 10 MG tablet, Take 1 (one) tablet (10 mg total) by mouth daily ., Disp: , Rfl: calcium-vitamin D (OS-KRISS +D) 500 mg-5 mcg (200 unit) per tablet, Take 1 (one) tablet by mouth 2 (two) times a day with meals ., Disp: , Rfl: lisinopriL-hydrochlorothiazide (PRINZIDE,ZESTORETIC) 10-12.5 mg per tablet, Take 1 (one) tablet by mouth daily ., Disp: , Rfl: Allergies Allergen Reactions Certolizumab Pegol Unknown Adhesive Rash History reviewed. No pertinent surgical history. Social History Socioeconomic History Marital status: Tobacco Use Smoking status: Never Smokeless tobacco: Never Substance and Sexual Activity Alcohol use: Yes Alcohol/week: 2.0 standard drinks of alcohol Types: 1 Glasses of wine, 1 Cans of beer per week Drug use: Never Sexual activity: Yes Partners: Male control/protection: Vasectomy Comment: hysterectomy Family History Problem Relation Age of Onset Diabetes Mother PHYSICAL EXAM: The patient was examined today 07/15/2023 with findings as follows: CONSTITUTIONAL: General Appearance: well-appearing, nontoxic, alert, no acute distress Communication: normal voicing, hearing intact to spoken voice HEAD/FACE: Head: atraumatic, normocephalic, no lesions Facial Inspection: no lesions, healthy skin Facial Strength: motor strength normal, symmetric strength, symmetric movement EYES: Pupils: PERRLA, extra-ocular movements intact, no nystagmus, sclera white, no redness of eyes, no watering of eyes EARS: Bilateral External Ears: no pits, no tags Right External Ear: normally formed, no lesions, no mastoid tenderness Left External Ear: normally formed, no lesions, no mastoid tenderness Right External Auditory Canal: normal, healthy skin, no obstructing cerumen, no discharge Left External Auditory Canal: normal, healthy skin, no obstructing cerumen, no discharge Right Tympanic Membrane: normal landmarks, central tympanosclerosis with retraction along malleus to incus, no cholesteatoma Left Tympanic Membrane: normal landmarks, translucent, no perforation Hearing: intact to spoken voice NECK: Neck: no masses, trachea midline, normal range of motion, no cysts or pits, no tenderness to palpation LYMPH NODES: Cervical: no palpable lymph node enlargement SKIN: General Appearance: no lesions, warm and dry, normal turgor, no bruising PSYCHIATRIC: Mood and affect: normal mood, normal affect Assessment and Plan: I have independently reviewed. There is no retrocochlear pathology. There is some enhancement within the dependent right mastoid space which may reflect her reports of intermittent irritation. I co not see any clinical sings if infection to indicate a need for revisions surgery at this time. She has some mild tympanosclerosis and adhesive disease of the right ear. She is medically cleared for a right hearing aid at this time. The causes of hearing loss are discussed in the context of the patient's history and exam findings. We have discussed that exposure to excess environmental noise can result in worsened symptoms and that hearing protection in high noise environments is recommended. We have discussed that hearing aids can be helpful when hearing loss is disruptive and the features of hearing loss that respond well to amplification. An appointment with the core stripper in the office is offered if the patient wishes to explore options in this regard. The patient and/or caregiver is able to state an understanding of these recommendations and is agreeable to the treatment plan. 1. Chronic mastoiditis of right side 2. Mixed conductive and sensorineural hearing loss of right ear with restricted hearing of left ear 3. 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 Tympanosclerosis involving tympanic membrane only, right Return in about 6 months (around 01/15/2024). The patient and/or caregiver is to notify the office if no improvement or worsening of symptoms is noted prior to the scheduled follow-up for sooner evaluation. The patient and/or caregiver is able to state an understanding of these recommendations and is agreeable to the treatment plan. --Yuli Yarbrough MD on 07/15/2023 at 11:22 AM An electronic signature was used to authenticate this note. Review of Systems Constitutional: Negative. HENT: Positive for hearing loss and postnasal drip. Eyes: Negative. Respiratory: Negative. Cardiovascular: Negative. Gastrointestinal: Negative. Endocrine: Negative. Genitourinary: Negative. Musculoskeletal: Negative. Skin: Negative. Allergic/Immunologic: Negative. Neurological: Negative. Hematological: Negative. Psychiatric/Behavioral: Negative. documented in this encounter [facility] 06-09-2023 History of Present illness Narrative Images from the original note were not included. [facility] [address] [address] Name: Camille Yo : 1960 Date: 06/09/23 History & Purpose of Evaluation: Camille Yo was seen today for audiologic assessment at the request of Yuli Yarbrough MD. Ms. Yo's chief auditory complaint was bilateral hearing loss, particularly in the presence of background noise. Ms. Yo reported the onset and progression were gradual beginning many years ago. She denied any sudden or rapid change of hearing. She perceives more difficulty hearing from the right ear than the left ear. Please see below for other pertinent case history information as reported by Ms. Yo. Otologic Symptoms R L Noise Exposure Y N Medical Y N Hearing Loss [x] [x] Occupational [] [x] Hypertension [x] [] Tinnitus-"seldom" [x] [x] Recreational-does not wear hearing protection [x] [] Diabetes [] [x] Otalgia [] [] [] [x] Hypercholesterolemia [x] [] Otorrhea [] [] Heart Disease [] [x] Aural Fullness [x] [] Family History [] [x] Stroke [] [x] Meniere s Disease [] [] Cancer [] [x] Y N Sp./Lang. Skills Ear Surgery R L Vertigo [] [x] Appropriate [x] [] PE Tubes [] [] Dizziness [] [x] In Therapy [] [x] Mastoidectomy [x] [] Imbalance [] [x] Social Acoustic Neuroma [] [] Vestibular Rehab [] [x] Depression [] [x] Tympanoplasty [] [] Hearing aids: none Other: Results: Otoscopy: Performed by Dr. Yarbrough prior to testing. Puretone Air & Bone Conduction Audiometry: Left ear: Hearing was within normal limits in the low frequencies through 1000 Hz, sloping to a moderate sensorineural hearing loss in the high frequencies. Right ear: Puretone audiometry suggested a mixed hearing loss, severe at 250 Hz, rising to moderate between 500 Hz and 4000 Hz, sloping to severe at 8000 Hz. Speech Audiometry: Speech recognition thresholds were in good agreement with puretone averages. Word recognition was poor (66%) in the right ear when assessed at a level above normal conversational loudness, and excellent (94%) in the left ear when assessed at a normal conversational loudness level. Speech audiometry was assessed using recorded male voice. Immittance Audiometry: Tympanometry revealed normal ear canal volume, normal static compliance, and normal resting pressure (Jerger type A), in the right ear. Tympanometry was discontinued in the left ear due to patient discomfort. Ipsilateral acoustic reflexes were present in the left ear but absent in the right ear. Contralateral acoustic reflexes were absent in both ears. Impression: Middle ear testing was consistent with a well-ventilated middle ear system in the right ear, but could not be assessed in the left ear. Puretone audiometry revealed an asymmetrical hearing loss, right ear worse than the left ear. Word recognition also showed a significant asymmetry between the left ear and the right ear. Recommendations: Follow up with Dr. Yarbrough. Further testing and/or re-evaluation at Dr. Yarbrough' discretion. Use of hearing protection is recommended when in high levels of noise. A pair of non-custom Phonak Serenity Choice-music earplugs were provided to Ms. Yo at today's appointment. The above was explained to Ms. Yo and she expressed understanding. Electronically Signed by: Natalee Amado, [facility] 06/09/23 10:40 AM Audiogram: documented in this encounter [facility] 06-09-2023 History of Present illness Narrative [facility] [address] [facility] ENT [place] [address] [facility] [place] [address] Dept: [phone] Yuli Yarbrough MD Camille Yo 62 y.o. female Patient presents with a chief complaint of Establish Care (New patient Ear Check, possible hearing aids, last HE 04/17/23 from [employer] life in [place] /) Temp 97.6 F (36.4 C) Wt 64 kg (141 lb 3.2 oz) History of Presenting Illness: The patient/caregiver reports a history of complaint with the following features: She has noticed that her hearing is declining. She had an audiogram that suggested that she would benefit form hearing aids and needs a medical clearance due to debris in the ear canals. She has had ear wax in the past that has been removed. She continues to notice trouble hearing in background noise or if she cannot see the speaker. This seems to be getting more bothersome. She admits to loud noise exposure that causes transient ringing and reduced hearing but the ringing is not constant. Review of systems covering 10 systems is reviewed and pertinent positives and negatives are noted as above. History reviewed. No pertinent past medical history. Current Outpatient Medications: alendronate (FOSAMAX) 70 mg/75 mL solution, Take 75 mL (70 mg total) by mouth every 7 days Take in the morning with a full glass of water, on an empty stomach, and do not take anything else by mouth or lie down for the next 30 min. ., Disp: , Rfl: atorvastatin (LIPITOR) 10 MG tablet, Take 1 (one) tablet (10 mg total) by mouth daily ., Disp: , Rfl: calcium-vitamin D (OS-KRISS +D) 500 mg-5 mcg (200 unit) per tablet, Take 1 (one) tablet by mouth 2 (two) times a day with meals ., Disp: , Rfl: lisinopriL-hydrochlorothiazide (PRINZIDE,ZESTORETIC) 10-12.5 mg per tablet, Take 1 (one) tablet by mouth daily ., Disp: , Rfl: Allergies Allergen Reactions Certolizumab Pegol Unknown Adhesive Rash History reviewed. No pertinent surgical history. Social History Socioeconomic History Marital status: Tobacco Use Smoking status: Never Smokeless tobacco: Never Substance and Sexual Activity Alcohol use: Yes Drug use: Never History reviewed. No pertinent family history. PHYSICAL EXAM: The patient was examined today 06/09/2023 with findings as follows: CONSTITUTIONAL: General Appearance: well-appearing, nontoxic, alert, no acute distress Communication: normal voicing, hearing intact to spoken voice HEAD/FACE: Head: atraumatic, normocephalic, no lesions Facial Inspection: no lesions, healthy skin Facial Strength: motor strength normal, symmetric strength, symmetric movement EYES: Pupils: PERRLA, extra-ocular movements intact, no nystagmus, sclera white, no redness of eyes, no watering of eyes EARS: Bilateral External Ears: no pits, no tags Right External Ear: normally formed, no lesions, no mastoid tenderness Left External Ear: normally formed, no lesions, no mastoid tenderness Right External Auditory Canal: normal, healthy skin, no obstructing cerumen, no discharge Left External Auditory Canal: normal, healthy skin, no obstructing cerumen, no discharge Right Tympanic Membrane: normal landmarks, central tympanosclerosis with retraction along malleus to incus, no cholesteatoma Left Tympanic Membrane: normal landmarks, translucent, no perforation Hearing: intact to spoken voice NECK: Neck: no masses, trachea midline, normal range of motion, no cysts or pits, no tenderness to palpation LYMPH NODES: Cervical: no palpable lymph node enlargement SKIN: General Appearance: no lesions, warm and dry, normal turgor, no bruising PSYCHIATRIC: Mood and affect: normal mood, normal affect Assessment and Plan: She has some mild tympanosclerosis and adhesive disease of the right ear. I see no infection or cholesteatoma. Audiometric testing is performed today and independently reviewed and interpreted. This shows an asymmetric mixed right hearing loss with reduced speech discrimination, and a milder sloping loss on the left. Tympanometry shows normal compliance consistent with normally ventilated middle ear spaces on the right, and unable to tolerate on the left. She reports that prior imaging was done many years ago and a records request to compare those finding for progression is offered. Repeat imaging for any retrocochlear pathology is advised given her report of worsening. Annual hearing testing to assess for stability is also advised. 1. Mixed conductive and sensorineural hearing loss of right ear with restricted hearing of left ear MR IAC With And Without Contrast Creatinine, Serum 2. Impaired auditory discrimination, right MR IAC With And Without Contrast Creatinine, Serum 3. Tympanosclerosis involving tympanic membrane only, right 4. 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 Sensorineural hearing loss, bilateral Ambulatory referral to Audiology 6. Subjective tinnitus of right ear MR IAC With And Without Contrast Creatinine, Serum Return in about 1 month (around 07/08/2023). The patient and/or caregiver is to notify the office if no improvement or worsening of symptoms is noted prior to the scheduled follow-up for sooner evaluation. The patient and/or caregiver is able to state an understanding of these recommendations and is agreeable to the treatment plan. --Yuil Yarbrough MD on 06/09/2023 at 11:41 AM An electronic signature was used to authenticate this note. Review of Systems Constitutional: Positive for activity change and fatigue. HENT: Positive for ear discharge, ear pain, sinus pressure and sinus pain. Negative for hearing loss and tinnitus. Respiratory: Positive for cough, shortness of breath and wheezing. Cardiovascular: Positive for palpitations and leg swelling. Gastrointestinal: Positive for diarrhea and nausea. Genitourinary: Positive for frequency and urgency. Musculoskeletal: Positive for joint swelling, neck pain and neck stiffness. Skin: Positive for rash and wound. Neurological: Positive for speech difficulty and weakness. Psychiatric/Behavioral: Positive for agitation and confusion. The patient is nervous/anxious. documented in this encounter [facility] Evaluation note No assessment information availa 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 Sensorineural hearing loss, bilateral Subjective tinnitus of right ear [facility] Sensorineural [facility], bilateral [facility] Diagnosis Chronic mastoiditis of right side- Primary Mixed conductive and sensorineural hearing loss of right ear with restricted hearing of left ear 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, right [facility] Diagnosis Onset Date Resolution Status Admit Date Atrophic vaginitis acute Octobe r 2024 9:49am Vaginal odor acute January 9:49am Encounter for routine gynecological examination noneactive [facility] r 2024 9:49am [facility] Work Phone: Progress note Author Shara Antoine [facility] Note Date/Time January 31, 2025 1 0:40am [facility] [address] [place] [address], [address] [place] [address] OFFICE VISIT Date of Service: 01/31/25 MR#: [id number] Acct: [id number] Name: CAMILLE YO Rep #: [id number] : 1960 Provider: Dr. 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: No Is patient in pain?: No Allergies adhesive Adverse Reaction (Verified 01/31/25 09:51) Rash Medications ?Medication ?Instructions ?Recorded ?Confirmed ?Type lisinopril 10 mg tablet 10 mg PO QDAY 11/09/2401/31 History lisinopril 2.5 mg tablet 2.5 mg PO QDAY 11/09/2401/19 History acetaminophen 650 mg 650 mg PO Q8H 01/31/2501/31 History tablet,extended release (Tylenol Arthritis Pain) cetirizine 10 mg capsule (Allergy 10 mg PO QDAY PRN 01/31/25 History Relief (cetirizine)) cholecalciferol (vitamin D3) 50 50 mcg PO QDAY 5 01/31/25 History mcg (2,000 unit) capsule estradiol 0.01% (0.1 mg/gram) 0.25 appful vaginal QDAY #42.5 01/31/25 01/31/25 Rx vaginal cream grams multivitamin 1 tab PO QDAY 01/31/2501/31 History Is last menstrual period known: No Patient : No : No PFSH Medical History Cataract Osteopenia Osteoarthritis Hypertension Surgical History S/P cataract extraction H/O mastoidectomy H/O carpal tunnel repair H/O: hysterectomy Family History Father Suicide Mother Diabetes Hypertension Aunt Breast cancer Social History (Updated 01/31/25 @ 10:04 by Ryanne Patel) Smoking Status: Never smoker alcohol intake: current Alcohol type: wine substance use type: does not use frequency: 5-6 times per week additional social history: - Humble History 2 Elective abortions Hx Para 2 Spontaneous abortions Hx # Term Pregnancies Ectopic pregnancies Hx # Pregnancies Multiple births # of living children Past Pregnancies Del. Date Name GA/Weeks Outcome Route Bth Weight Infant Gen Labor Lgth Anes thes [facility] Provider FOB Unknown [facility] Kuhn [facility] Encounter for routine gynecological examination Details: CAMILLE YO is a 64 year old who presents for annual exam. Last PAP: prior to hyst (done at [facility]) History of abnormal PAP: no Last mammogram: History of abnormal mammogram: no dexa ; 2022, has osteoporosis Colon cancer screening: up to date Other preventative health care screenings:was seeing Steph Shields before she retired complains of vaginal dryness, stiff joints takes lisinopril for high blood pressure., needs new pcp. Female Reproductive History Questions: sexually active: Yes, dyspareunia: No and PCB: No Menopausal Symptoms: No hot flashes, No night sweats, No weight change, No mood changes, No difficulty concentrating, No sleep problems and No change in libido ROS Const Constitutional: Reports as per HPI; Denies fatigue, increased appetite, poor appetite, night sweats, weight gain or weight loss Cardio Card: Denies chest pain Resp Resp: Denies cough or dyspnea GI GI: Reports as per HPI; Denies abdominal pain, bloating, constipation, nausea or vomiting : Reports as per HPI and other; Denies difficulty voiding, dysuria, hematuria, hot flashes, nipple discharge, pelvic pain, prolapse symptoms, urinary frequency, urinary incontinence, urinaryurgency, vaginal discharge, vaginal dryness, vaginal odor or vaginal pruritus Skin Skin/Breast: Denies changing lesions, breast mass, breast pain, breast skin changes or nipple discharge Psych Psych: Denies anxiety, change in libido, depression or difficulty concentrating Exam Const General: cooperative, healthy appearing, comfortable, no acute distress, well developed and well groomed HENME Head: normal to inspection and normocephalic Ears: hearing grossly normal bilaterally and external ears normal Nose: external nose normal Face and sinus: normal facial exam Neck Neck: normal visual inspection, full ROM and no lymphadenopathy Thyroid: thyroid normal Chest Chest palpation & inspection: normal inspection of the chest Breast inspection: normal inspection of the breasts and normal inspection of theaxillae Breast palpation: normal palpation of the breasts, normal palpation of the axillae and no axillary lymphadenopathy Resp Effort & Inspection: normal respiratory effort GI Inspection: normal to inspection and non-distended Palpation: soft, no hepatosplenomegaly and no guarding General: bladder normal to palpation External Female Exam: normal external appearance, normal appearance of the urethra and no lesions Urethra: normal appearance of the urethra and normal palpation Speculum Exam - Vagina: normal appearance of the vagina and normal vaginal discharge Bimanual Exam- Vagina & Uterus: bladder normal to palpation Bimanual Exam- Adnexa, other: normal adnexae, no masses and non-tender Skin General: no rashes or lesions noted Neuro General: patient alert, moves all extremities and no focal motor deficits Extrem General: normal to inspection and no pedal edema Psych Appearance: grossly normal Mental Status: mental status grossly normal Affect: normal affect Speech and Movement: speech and movement normal Attitude: cooperative Coding Level of Care Code Off vis,new,prev 40-64yrs Diagnoses Encounter for gynecological examination with abnormal finding Z01.411 Gynecological examination findings: abnormal findings PRESENT Vaginal odor N89.8 Atrophic vaginitis N95.2 Assessment and Plan Assessment and Plan (1) Encounter for routine gynecological examination: Qualifiers: Gynecological examination findings: abnormal findings PRESENT QualifiedCode(s): Z01.411 - Encounter for gynecological examination (general) (routine) with abnormal findings Plan: Cervical cancer screening: pap no longer needed as had hysterectomy Breast cancer screening: mammogram ordered plan to look into chondroitin sulfate supplements, vitamin D, calcium. pamphlet on osphena given starting estrogen cram for vaginal dryness. red top ordered for complaint of vaginal odor other health maintenance examination reviewed and orders placed if needed. Encouraged maintenance of a healthy weight and active lifestyle and handout given. Annual exam handout including recommendations for good health guidelines, Calcium/vitamin D recommendations, and basic screening information given. Problem list up to date, see problem list details for any additional plan information. Follow up in one year for annual health maintenance exam or sooner if needed. (2) Vaginal odor: Status: Acute (3) Atrophic vaginitis: Status: Acute Orders: Orders SCRN MAMM (CAD)W/NEAL BILAT Today Z12.31 - Encounter for screening mammogram for malignant neoplasm of breast Dexa Bone Density Study Today Lipid Profile Today M81.0 - Age-related osteoporosis without current pathological fracture, Z13.220 - Encounter for screening for lipoid disorders Glucose Today M81.0 - Age-related osteoporosis without current pathological fracture, Z13.1 - Encounter for screening for diabetes mellitus Thyroid Stim Hormone (TSH) Today M81.0 - Age-related osteoporosis without current pathological fracture, Z13.29 - Encounter for screening for other suspected endocrine disorder Vitamin D,25 Hydroxy Today M81.0 - Age-related osteoporosis without current pathological fracture Culture, Genital Comprehensive Today N89.8 - Other specified noninflammatory disorders of vagina Medications: New estradiol 0.01%(0.1mg/gram) once a day for 14 days, then twice a week 0.25 appful vaginal QDAY 42.5 grams 5RF 01/31/25 1040 <Electronically signed by Shara Muhammad DO> Date _ Shara Celestin DO Cosigner Signature: Date (if applicable) CC: ~ [facility] Work Phone: Reason for referral (narrative)No reason for referral information availableWThe [facility] Work Phone: Advance Directives No Advanced Directives Records Found Advance Directive Response Recorded Date/ Time Advance Directives Yes November 28, 2014 11:03am Living Will Yes November 28 11:03am Power of Obedience Trainer Yes November 28 11:03am Advance Directive Response Recorded Date/ Time Advance Directives Yes November 28, 2014 10:03am Living Will Yes November 28 5 10:03am Power of Obedience Trainer Yes November 28 015 10:03am Advance Directive Response Recorded Date/ Time Advance Directives Yes November 28, 2014 11:03am Chief Complaint and Reason for Visit Chief Complaint PERIMENOPAUSAL Chief Complaint SCREENING Chief Complaint Admit Date MNT May 27, 2024 9 :30am MNT July 07, 2024 10: 00am RIGHT KNEE PAIN July 16, 2024 2:1 6pm Chief Complaint Admit Date 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 [address] [place] [address] Referral ID Status Reason Start Date Expiration Date V isits Requested Visits Authorized [id number] Pending Review 06/09/2023 06/08/2024 1 1 Specialty Diagnoses / Procedures Referred By Contac t Referred To Contact Audiology Diagnoses Sensorineural hearing loss, bilateral Yuli Yarbrough MD [address] [facility] [address] [place] [id number] [facility] [address] [place] [address] Referral ID Status Reason Start Date Expiration Date V isits Requested Visits Authorized [id number] Pending Review 06/09/2023 06/08/2024 1 1 Summary Purpose Family History No Family History Records Found Relationship Condition Age at Onset Recorded Date/T tory father Suicide Unknown mother Diabetes mellitus Unknown Hypertension Unknown aunt Malignant neoplasm of breast Unknown Additional Source Comments Goals (unrecognized section and content) Goals may be documented in a n alternate sectionGoals may be documented in an alternate sectionGoals may be documented in an alternate sectionGoals may be documented in an alternate sectionGoals may be documented in an alternate sectionGoals may be documented in an alternate sectionGoals may be documented in an alternate sectionGoals may be documented in an alternate sectionGoals may be documented in an alternate section Care Teams (unrecognized sec tion and content) Team Status: Active Member Role Status Dates Dr. Steph Pereira MD Family Provider Active Dr. Steph Pereira MD Primary Care Provider Active Team Status: Inactive Member Role Status Dates Dr. Steph ePreira MD Primary Care Provider, Attendin g Provider Active Team Status: Inactive Member Role Status Dates Dr. Steph Pereira MD Primary Care Prov ider, Attending Provider, Referring Provider Active Grinding Mill Operator Relationship Specialty Start Date End Date Steph Pereira MD [address] [place] [address] PCP - General Family Medicine 04/25/23 Grinding Mill Operator Relationship Specialty Start Date End Date Steph Pereira MD [address] [place] [address] PCP - General Family Medicine 04/25/23 Grinding Mill Operator Relationship Specialty Start Date End Date Steph Pereira MD [address] [place], [place] [id number] PCP - General Family Medicine 04/25/23 Team Status: Active Member Role Status Dates Dr. Steph Pereira MD Primary Care Provider Active Team Status: Inactive Member Role Status Dates Dr. Steph Pereira MD Primary Care Provider Active Start: May 27, 2024 End: June 18, 2024 Dr. Steph Pereira MD Attending Provider Active Start: May 27, 2024 End: June 18, 2024 Dr. Steph Pereira MD Referring Provider Active Start: May 27, 2024 End: June 18, 2024 Team Status: Inactive Member Role Status Dates Dr. Steph Pereira MD Primary Care Provider Active Start: July 07, 2024 End: July 19, 2024 Dr. Steph Pereira MD Attending Provider Active Start: July 07, 2024 End: July 19, 2024 Dr. Steph Pereira MD Referring Provider Active Start: July 07, 2024 End: July 19, 2024 Team Status: Active Member Role Status Dates Dr. Steph Pereira MD Primary Care Provider Active Start: July 16, 2024 Dr. Greg Sahu MD Attending Provider Active Start: July 16, 2024 Dr. Greg Sahu MD Referring Provider Active Start: July 16, 2024 Team Status: Inactive Member Role Status Dates Dr. Steph Pereira MD Primary Care Provider Active Start: July 16, 2024 End: July 16, 2024 Dr. Greg Sahu MD Attending Provider Active Start: July 16, 2024 End: July 16, 2024 Dr. Greg Sahu MD Referring Provider Active Start: July 16, 2024 End: July 16, 2024 Team Status: Active Member Role/Relationship Status Dates Lawrence Moore MD Primary care physician Active Team Status: Inactive Member Role/Relationship Status Dates Dr. Steph Pereira MD Primary care physician Active Start: January 31, 2025 End: January 31, 2025 Dr. Steph Pereira MD Referring Provider Active Start: January 31, 2025 End: January 31, 2025 Dr. Shara Celestin DO Attending physician Acti ve Start: January 31, 2025 End: January 31, 2025 Team Status: Active Member Role/Relationship Status Dates Dr. Steph Pereira MD Primary care physician Active Start: January 31, 2025 Dr. Shara Celestin DO Attending physician Acti ve Start: January 31, 2025 Team Status: Active Member Role/Relationship Status Dates Dr. Steph Pereira MD Primary care physician Active Start: February 02, 2025 Dr. Ludivina Coats MD Attending physician Active Start: February 02, 2025 Reason for Visit (unrecogniz ed section and content) Reason Comments Establish Care New patient Ear [facility], possible hearing aids, last HE 04/17/23 from [facility] [place] Specialty Diagnoses / Procedures Referred By Contac t Referred To Contact Audiology Diagnoses Sensorineural hearing loss, bilateral Zenon, Yuli Hollis MD [address] [place] [address] [address] [place] [address] [facility] [address] [place] [address] Referral ID Status Reason Start Date Expiration Date V isits Requested Visits Authorized [id number] Pending Review 06/09/2023 06/08/2024 1 1 Reason Comments Mixed conductive and sensori neural hearing loss of right ea 1 mo follow up MRI for hearing loss INFORMATION SOURCE (unrecogn ized section and content) DATE CREATED AUTHOR 01/18/2024 [facility] DATE CREATED AUTHOR AUTHOR'S ORGANIZ ATION 01/19/2024 [facility] DATE CREATED AUTHOR AUTHOR'S ORGANIZ ATION 02/20/2025 [facility] FOR RECORDS PERTAINING TO PATIENTS WHO ARE OR HAVE BEEN ENROLLED IN A CHEMICAL DEPENDENCY/SUBSTANCEABUSE PROGRAM, SOME INFORMATION MAY BE OMITTED. This clinical summary was aggregated from multiple sources. Caution should be exercised in using it in the provision of clinical care. This summary normalizes information from multiple sources, and as a consequence, information in this document may materially change the coding, format and clinical context of patient data. In addition, data may be omitted in some cases. CLINICAL DECISIONS SHOULD BE BASED ON THE PRIMARY CLINICAL RECORDS. [facility] [employer] provides no warranty or guarantee of the accuracy or completeness of information in this document.
== END | disposition home or self-care (01) ==
PROVIDERS: PCP Family Medicine; Referring Provider Obstetrics & Gynecology; Visit Provider Obstetrics & Gynecology
DX: Z12.31 Encounter for screening mammogram for malignant neoplasm of breast (principal); Z80.3 Family history of malignant neoplasm of breast; M81.0 Age-related osteoporosis without current pathological fracture
CPT/HCPCS: 77063; 77067; 77080